=== PATIENT | female | born 1985 | race African-American/Black ===

== ENCOUNTER 2016-08-14 14:12 | Emergency (ER) | payer SELFPAY ==
[~2016-08-14] VITALS: Ht 160 cm; Wt 87.1 kg
[~2016-08-14 14:12] MED LIST: CYCL10TA2 PO; IBUP-1060 PO; PROM25TA10 PO
[2016-08-14 15:20] LABS: BILIRUBIN,URINE NEGATIVE (NEG); GLUCOSE,URINE NEGATIVE (NEG); NITRITE,URINE NEGATIVE (NEG); PH,URINE 5.5; PROTEIN,URINE NEGATIVE (NEG-TRACE); UROBILINOGEN,URINE 0.2 mg/dL (0.2 mg/dL)
[2016-08-14 15:29] VITALS: BP 116/78
[2016-08-14 15:31] LABS: BACTERIA,URINE 0 /HPF (0-FEW); RBC,URINE 0 /HPF (0-2); SQUAMOUS EPITHELIAL CELL,UR FEW /LPF
--- NOTE | 2016-08-14 15:31 | PHYS DOC ---
Past Medical History Past Medical History: No Pertinent History Past Surgical History: Other Additional Past Surgical Histo: D&C, R FALLOPIAN TUBE REMOVED Alcohol Use: Occasionally Drug Use: Marijuana Adult General Chief Complaint Chief Complaint: CONTISPATION HPI HPI Patient is a 31 year old female with a history of tubal 10 years ago who presents today with constipation in as well as low back pain in . Patient states she's not had a good bowel movement for the last 2 or 3 days due to the vitamins she is taking. Patient has not tried anything [id number] for this constipation. She is a 2 para 0. Her last was the tubal . She is also complaining of low back pain for a couple weeks. Patient denies any trauma. Denies any pain radiating to bilateral lower extremities. Denies any urgency frequency or dysuria. She states she has not seen her OBGYN yet because she is waiting for a medical card. Patient denies any vaginal discharge or abd pain. Last menstrual cycle was June 02, 2016 Review of Systems Review of Systems Constitutional: Denies fever or chills [] Eyes: Denies change in visual acuity, redness, or eye pain [] HENT: Denies nasal congestion or sore throat [] Respiratory: Denies cough or shortness of breath [] Cardiovascular: No additional information not addressed in HPI [] GI: Constipation : Denies dysuria or hematuria [] Musculoskeletal: Low back pain Integument: Denies rash or skin lesions [] Neurologic: Denies headache, focal weakness or sensory changes [] Endocrine: Denies polyuria or polydipsia [] Allergies Allergies Allergies Coded Allergies Type Severity Reaction Last Updated Verified No Known Drug Allergies 07/19/13 No Physical Exam Physical Exam Constitutional: Well developed, well nourished, no acute distress, non-toxic appearance. [] HENT: Normocephalic, atraumatic, bilateral external ears normal, oropharynx moist, no oral exudates, nose normal. [] Eyes: PERRLA, EOMI, conjunctiva normal, no discharge. [] Neck: Normal range of motion, no tenderness, supple, no stridor. [] Cardiovascular:Heart rate regular rhythm, no murmur [] Lungs & Thorax: Bilateral breath sounds clear to auscultation [] Abdomen: Rounded abdomen. Bowel sounds normal, soft, no tenderness, no masses, no pulsatile masses. [] Skin: Warm, dry, no erythema, no rash. [] Back: Diffuse paraspinal muscle tenderness to the lower lumbar region, no midline tenderness, no CVA tenderness. [] Extremities: No tenderness, no cyanosis, no clubbing, ROM intact, no edema. [] Neurologic: Alert and oriented X 3, normal motor function, normal sensory function, no focal deficits noted. [] Psychologic: Affect normal, judgement normal, mood normal. [] Current Patient Data Vital Signs Vital Signs Date Time Temp Pulse Resp B/P (MAP) Pulse Ox O2 Delivery O2 Flow Rate FiO2 08/14/16 14:25 98.2 98 18 98 Room Air 98.2 Lab Values Laboratory Tests Test 08/14/16 13:38 08/14/16 14:20 POC Urine HCG, Qualitative Hcg positive (Negative) Urine Collection Type Unknown Urine Color Yellow Urine Clarity Clear Urine pH 5.5 Urine Specific [place] 1.020 Urine Protein Negative mg/dL (NEG-TRACE) Urine Glucose (UA) Negative mg/dL (NEG) Urine Ketones (Stick) Negative mg/dL (NEG) Urine Blood Negative (NEG) Urine Nitrite Negative (NEG) Urine Bilirubin Negative (NEG) Urine Urobilinogen Dipstick 0.2 mg/dL (0.2 mg/dL) Urine Leukocyte Esterase Negative (NEG) Urine RBC 0 /HPF (0-2) Urine WBC 1-4 /HPF (0-4) Urine Squamous Epithelial Cells Few /LPF Urine Bacteria 0 /HPF (0-FEW) Urine Mucus Mod /LPF EKG EKG [] Radiology/Procedures Radiology/Procedures [] Course & Med Decision Making Course & Med Decision Making Pertinent Labs and Imaging studies reviewed. (See chart for details) This is a 31-year-old female patient who presents today for constipation as well as low back pain in . She is 8 weeks . She states her constipation is from vitamins. I talked to patient and encouraged her to look for vitamins that do not cause constipation especially from the health food stools. We talked about increasing water as well as dietary fiber intake. I recommended MiraLAX on daily basis. I recommended she follows up with the [facility] as soon as she can. Her urine analysis is no infection. She was provided return precautions and discharged in stable condition. Dragon Disclaimer Dragon Disclaimer This electronic medical record was generated, in whole or in part, using a voice recognition dictation system. Departure Departure Impression: Primary Impression: Constipation Additional Impressions: Low back pain Disposition: 01 HOME, SELF-CARE Condition: STABLE Referrals: NO PCP (PCP) CHARITY BUNN MD Follow-up with the provided [facility] in one week Patient Instructions: ABCs of , Back Pain, Adult, Constipation, Adult Additional Instructions: You were seen for constipation in as well as back pain. Take over-the- counter MiraLAX every day for constipation. Take Tylenol as needed for back pain. You can go to health food stores and look for vitamins that do not cause constipation. Follow-up with the provided [facility] in the next 7 days. Come back to the ED if symptoms worsen. Scripts Polyethylene Glycol 3350 (MIRALAX) 17 Gm Powd.pack 1 PACKET PO DAILY, #30 PACKET 3 Refills Prov: GABI GRISSOM APRN 08/14/16 Problem Qualifiers Primary Impression: Constipation Constipation type: unspecified constipation type Qualified Codes: K59.00 - Constipation, unspecified Additional Impressions: Low back pain Chronicity: acute Back pain laterality: bilateral Sciatica presence: without sciatica Qualified Codes: M54.5 - Low back pain Weeks of gestation: 8 weeks Qualified Codes: Z3A.08 - 8 weeks gestation of GABI GRISSOM APRN Aug 14, 2016 15:31
[2016-08-14] MEDS ORDERED: POLY17PO29 PO (15:45)
== END 2016-08-14 15:48 | disposition home or self-care (01) ==
LOC: ER 14:12
DX: O26.891 Other specified pregnancy related conditions, first trimester (principal); M54.5 Low back pain; K59.00 Constipation, unspecified; Z3A.08 8 weeks gestation of pregnancy; F12.10 Cannabis abuse, uncomplicated
CPT/HCPCS: 81001; 81025; 99283

== ENCOUNTER 2017-01-07 16:33 | Emergency (ER) | payer OTHER ==
[~2017-01-07] VITALS: Ht 160 cm; Wt 100.7 kg
[~2017-01-07 16:33] MED LIST changes: +POLY17PO29 PO
[2017-01-07 16:38] VITALS: BP 136/89
--- NOTE | 2017-01-07 16:55 | PHYS DOC ---
Past Medical History Past Medical History: No Pertinent History Past Surgical History: Other Additional Past Surgical Histo: D&C, R FALLOPIAN TUBE REMOVED Alcohol Use: Occasionally Additional Information: denies 01/07/17 Drug Use: Marijuana Social History Narrative: denies 01/07/17 Adult General Chief Complaint Chief Complaint: ABSCESS HPI HPI Patient is a 32 year old E male presents to the emergency department with complaints of a draining bump underneath her right axillary area. Patient states the bump his been present for "some years". She denies pain, fever, redness to the affected area. Review of Systems Review of Systems Constitutional: Denies fever or chills [] Eyes: Denies change in visual acuity, redness, or eye pain [] HENT: Denies nasal congestion or sore throat [] Respiratory: Denies cough or shortness of breath [] Cardiovascular: No additional information not addressed in HPI [] GI: Denies abdominal pain, nausea, vomiting, bloody stools or diarrhea [] : Denies dysuria or hematuria [] Musculoskeletal: Denies back pain or joint pain [] Integument: Abscess Neurologic: Denies headache, focal weakness or sensory changes [] Endocrine: Denies polyuria or polydipsia [] Allergies Allergies Allergies Coded Allergies Type Severity Reaction Last Updated Verified No Known Drug Allergies 07/19/13 No Physical Exam Physical Exam Constitutional: Well developed, well nourished, no acute distress, non-toxic appearance. [] Neck: Normal range of motion, no tenderness, supple without lymphadenopathy, no stridor. [] Cardiovascular:Heart rate regular rhythm, no murmur [] Lungs & Thorax: Bilateral breath sounds clear to auscultation []. [] Skin: Warm, dry, no erythema, no rash. Right axillary region with a 2 cm fluctuant area, skin colored, nontender. With pressure there is a small amount of thick white foul-smelling discharge. [] Neurologic: Alert and oriented X 3, normal motor function, normal sensory function, no focal deficits noted. [] Psychologic: Affect normal, judgement normal, mood normal. [] Current Patient Data Vital Signs Vital Signs Date Time Temp Pulse Resp B/P (MAP) Pulse Ox O2 Delivery O2 Flow Rate FiO2 01/07/17 16:38 98.2 98 18 99 Room Air 98.2 EKG EKG [] Radiology/Procedures Radiology/Procedures Procedure note: Right axillary sebaceous cyst, ray cleansed with Betadine, anesthetized with 1% lidocaine, half a milliliter. #11 blade utilize to incise the sebaceous cyst. Moderate amount of thick white secretions. Wound dressed with Band-Aid. Patient tolerated procedure well.[] Course & Med Decision Making Course & Med Decision Making Pertinent Labs and Imaging studies reviewed. (See chart for details) [] Dragon Disclaimer Dragon Disclaimer This electronic medical record was generated, in whole or in part, using a voice recognition dictation system. Departure Departure Impression: Primary Impression: Sebaceous cyst of right axilla Disposition: HOME, SELF-CARE Condition: STABLE Referrals: NO PCP (PCP) [facility] Patient Instructions: Cyst Removal Additional Instructions: No deodorant for 10 days. Keep area clean and dry. Return to the emergency department his symptoms or concerns or worsening of current condition. FELIPE ALBERT EMERGENCY MANAGEMENT SPECIALIST Jan 07, 2017 16:55
== END 2017-01-07 17:00 | disposition home or self-care (01) ==
LOC: ER 16:33
DX: L02.411 Cutaneous abscess of right axilla (principal); F17.210 Nicotine dependence, cigarettes, uncomplicated
CPT/HCPCS: 10060; 99283-25

== ENCOUNTER 2017-01-10 17:23 | Emergency (ER) | payer OTHER ==
[~2017-01-10] VITALS: Ht 160 cm; Wt 100.7 kg
[2017-01-10 17:49] VITALS: BP 157/89
[2017-01-10] MEDS ORDERED: CEPH500T PO (17:58)
--- NOTE | 2017-01-10 17:58 | PHYS DOC ---
Past Medical History Past Medical History: No Pertinent History Past Surgical History: Other Additional Past Surgical Histo: D&C, R FALLOPIAN TUBE REMOVED Alcohol Use: Occasionally Drug Use: Marijuana Adult General Chief Complaint Chief Complaint: ABSCESS HPI HPI Patient is a 32 year old female presents to the emergency department with a history of boil that she noted just below the right labia. Patient states the area is tender, denies drainage or discharge from the site. She does state she is . She has not been taking Tylenol for pain. Review of Systems Review of Systems Constitutional: Denies fever or chills [] Eyes: Denies change in visual acuity, redness, or eye pain [] HENT: Denies nasal congestion or sore throat [] Respiratory: Denies cough or shortness of breath [] Cardiovascular: No additional information not addressed in HPI [] GI: Denies abdominal pain, nausea, vomiting, bloody stools or diarrhea [] : Denies dysuria or hematuria [] Musculoskeletal: Denies back pain or joint pain [] Integument: Denies rash or skin lesions complaining of boil near the labia, right side Neurologic: Denies headache, focal weakness or sensory changes [] Endocrine: Denies polyuria or polydipsia [] Allergies Allergies Allergies Coded Allergies Type Severity Reaction Last Updated Verified No Known Drug Allergies 07/19/13 No Physical Exam Physical Exam Constitutional: Well developed, well nourished, no acute distress, non-toxic appearance. [] HENT: Normocephalic, atraumatic, bilateral external ears normal, oropharynx moist, no oral exudates, nose normal. [] Eyes: PERRLA, EOMI, conjunctiva normal, no discharge. [] Neck: Normal range of motion, no tenderness, supple, no stridor. [] Cardiovascular: [place] warm and dry Lungs & Thorax: No respiratory distress Skin: Warm, dry, no erythema, no rash. Patient with a small tender area does not appear to be red no warmth or drainage from the site appears to be approximately 2 cm your hair follicle just below the right labia. Area appears to be very soft with no induration or fluctuant noted. Extremities: No tenderness, no cyanosis, no clubbing, ROM intact, no edema. [] Neurologic: Alert and oriented X 3, normal motor function, normal sensory function, no focal deficits noted. [] Psychologic: Affect normal, judgement normal, mood normal. [] Current Patient Data Vital Signs Vital Signs Date Time Temp Pulse Resp B/P (MAP) Pulse Ox O2 Delivery O2 Flow Rate FiO2 01/10/17 17:49 97.8 102 16 98 Room Air 97.8 EKG EKG [] Radiology/Procedures Radiology/Procedures [] Course & Med Decision Making Course & Med Decision Making Pertinent Labs and Imaging studies reviewed. (See chart for details) Patient was recommended to use warm sitz baths 4-5 times daily. She'll be provided with a prescription for Keflex. Recommended Tylenol for pain and discomfort. Patient will be discharged home in stable condition with recommendations to follow-up with her [facility]/primary care physician in the next 3-5 days. Signs and symptoms to return back to emergency department as been provided. Patient agrees with discharge instructions treatment regimens and follow-up recommendations. [] Dragon Disclaimer Dragon Disclaimer This electronic medical record was generated, in whole or in part, using a voice recognition dictation system. Departure Departure Impression: Primary Impression: Folliculitis Disposition: 01 HOME, SELF-CARE Condition: STABLE Referrals: NO PCP (PCP) Patient Instructions: Folliculitis Additional Instructions: Activity as tolerated. Medication as prescribed. Tylenol for pain and discomfort. Warm sitz baths 5 times a day. Follow-up primary care physician or [facility] in the next 3-5 days. Return back to emergency prior signs symptoms of become worse. Scripts Cephalexin (CEPHALEXIN) 500 Mg Tablet 1 TAB PO BID, #20 TAB Prov: GENEVIEVE DAVIES APRN 01/10/17 GENEVIEVE DAVIES APRN Jan 10, 2017 17:58
== END 2017-01-10 18:12 | disposition home or self-care (01) ==
LOC: ER 17:23
DX: L73.9 Follicular disorder, unspecified (principal)
CPT/HCPCS: 99283

== ENCOUNTER 2017-09-22 15:59 | Emergency (ER) | payer OTHER ==
[2017-09-22 17:56] LABS: URINE HCG POC HCG NEGATIVE (Negative)
[2017-09-22 17:57] LABS: BILIRUBIN,URINE NEGATIVE (NEG); CLARITY,URINE CLEAR; COLOR,URINE YELLOW; GLUCOSE,URINE NEGATIVE (NEG); NITRITE,URINE NEGATIVE (NEG); PH,URINE 5.5; PROTEIN,URINE NEGATIVE (NEG-TRACE)
[2017-09-22 18:08] LABS: BACTERIA,URINE MOD /HPF (0-FEW); RBC,URINE 0 /HPF (0-2); SQUAMOUS EPITHELIAL CELL,UR MOD /LPF; WBC,URINE >40 /HPF (0-4)
[2017-09-22 18:09] LABS: AMORPHOUS SEDIMENT,UR PRESENT /HPF
== END 2017-09-22 19:09 | disposition home or self-care (01) ==
LOC: ER 19:09
DX: R51 Headache (principal); N39.0 Urinary tract infection, site not specified
CPT/HCPCS: 70450; 72125; 81001; 81025; 99285-25

== ENCOUNTER 2017-09-24 17:58 | Emergency (ER) | payer OTHER ==
[2017-09-24] MEDS: IBUPROFEN 800 MG TABLET. PO (19:13)
== END 2017-09-24 19:16 | disposition home or self-care (01) ==
LOC: ER 17:58
DX: R51 Headache (principal); N39.0 Urinary tract infection, site not specified
CPT/HCPCS: 99283

== ENCOUNTER 2018-01-07 10:54 | Emergency (ER) | payer OTHER ==
[~2018-01-07] VITALS: Ht 160 cm; Wt 104.3 kg
[~2018-01-07 10:54] MED LIST changes: +CEPH500T PO; +HYDR-971 PO; +NAPR-514 PO; +NITR100C62 PO
--- NOTE | 2018-01-07 11:22 | PHYS DOC ---
Past Medical History Past Medical History: No Pertinent History Past Surgical History: Other Additional Past Surgical Histo: D&C, R FALLOPIAN TUBE REMOVED Alcohol Use: Occasionally Drug Use: Marijuana Adult General Chief Complaint Chief Complaint: UPPER EXTREMITY INJURY HPI HPI Patient is a 33 year old female who presents today complaining of 7 out of 10 right hand pain that began this morning after she fell. 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 Patient denies any loss of consciousness. Review of Systems Review of Systems Constitutional: Denies fever or chills [] Musculoskeletal: Reports right hand pain Integument: Denies rash or skin lesions [] Neurologic: Denies headache, focal weakness or sensory changes [] All other systems were reviewed and found to be within normal limits, except as documented in this note. Allergies Allergies Allergies Coded Allergies Type Severity Reaction Last Updated Verified No Known Drug Allergies 07/19/13 No Physical Exam Physical Exam Constitutional: Well developed, well nourished, no acute distress, non-toxic appearance. [] Skin: Warm, dry, no erythema, no rash. [] Back: No tenderness, no CVA tenderness. [] Extremities: Right hand with no obvious deformity. Soft tissue swelling noted on the dorsal aspect of the hand. Diffuse tenderness on palpation of the dorsal aspect of the right hand. No scaphoid tenderness. Full range of motion to the right hand and fingers. +2 right radial pulse. Adequate radial, medial, ulnar sensation to the right hand. Cap refill less than 2 seconds the right fingers. Neurologic: Alert and oriented X 3, normal motor function, normal sensory function, no focal deficits noted. [] Psychologic: Affect normal, judgement normal, mood normal. [] Current Patient Data Vital Signs Vital Signs Date Time Temp Pulse Resp B/P (MAP) Pulse Ox O2 Delivery O2 Flow Rate FiO2 01/07/18 11:22 98.1 79 16 139/76 (97) 97 Room Air 98.1 EKG EKG [] Radiology/Procedures Radiology/Procedures []PROCEDURE: HAND RIGHT 3V History: Fell twice in the past 2 days. Pain in the posterior 1st and 2nd metacarpals. Comparison: None. Findings: PA, lateral, and oblique views of the right hand. Ulnar negative variance is seen. No acute fracture or dislocation is identified. Dorsal soft tissue swelling is seen. Impression: 1. No acute osseous traumatic injury identified. 2. Dorsal soft tissue swelling. Electronically signed by: Sharon Childs MD (01/07/2018 11:40 AM) [facility] DICTATED and SIGNED BY: SHARON CHILDS MD DATE: 01/07/18 1138 Course & Med Decision Making Course & Med Decision Making Pertinent Labs and Imaging studies reviewed. (See chart for details) This is a 33-year-old female patient presenting to the ED today with right hand pain status post falling today. Right hand x-rays interpreted by radiologist are negative for any acute findings. Velcro splint provided by the ED RN, neurovascular exam is intact, ice elevation encouraged. Discharged with diclofenac. Follow-up with orthopedic doctor in one week if pain continues. Dragon Disclaimer Dragon Disclaimer This electronic medical record was generated, in whole or in part, using a voice recognition dictation system. Departure Departure Impression: Primary Impression: Fall Additional Impression: Sprain of right hand Disposition: HOME, SELF-CARE Condition: STABLE Referrals: NO PCP (PCP) CAMILO LANGE MD follow up in one week if sypmptoms persist Patient Instructions: Fall Prevention and Home Safety, Joint Sprain Additional Instructions: You were seen for right hand sprain. Ice elevate the extremity. Wear the provided Velcro splint as needed and tolerated. Take the prescribed medicine as needed. Follow-up with the provided orthopedic doctor or your own doctor in 1-2 weeks as needed. Scripts Diclofenac Sodium (DICLOFENAC SODIUM) 50 Mg Tablet.dr 1 TAB PO BID, #30 TAB 0 Refills Prov: GABI GRISSOM APRN 01/07/18 Problem Qualifiers Primary Impression: Fall Encounter type: initial encounter Qualified Codes: W19.XXXA - Unspecified fall, initial encounter Additional Impression: Sprain of right hand Encounter type: initial encounter Qualified Codes: S63.91XA - Sprain of unspecified part of right wrist and hand, initial encounter GABI GRISSOM APRN Jan 07, 2018 11:22
--- NOTE | 2018-01-07 11:43 | RAD ---
History: Fell twice in the past 2 days. Pain in the posterior 1st and 2nd metacarpals. Comparison: None. Findings: PA, lateral, and oblique views of the right hand. Ulnar negative variance is seen. No acute fracture or dislocation is identified. Dorsal soft tissue swelling is seen. Impression: 1. No acute osseous traumatic injury identified. 2. Dorsal soft tissue swelling. Electronically signed by: Arnol Childs MD (01/07/2018 11:40 AM) [place] [id number]
[2018-01-07] MEDS ORDERED: DICL50TA4 PO (12:06)
[2018-01-07 12:12] VITALS: BP 129/81
== END 2018-01-07 12:12 | disposition home or self-care (01) ==
LOC: ER 10:54
DX: S63.91XA Sprain of unspecified part of right wrist and hand, initial encounter (principal); W18.39XA Other fall on same level, initial encounter; Y93.H3 Activity, building and construction; Y92.69 Other specified industrial and construction area as the place of occurrence of the external cause; Y99.0 Civilian activity done for income or pay
CPT/HCPCS: 29125; 73130; 99284-25

== ENCOUNTER 2018-03-06 23:50 | Emergency (ER) | payer OTHER ==
[~2018-03-06] VITALS: Ht 160 cm; Wt 106.6 kg
[~2018-03-06 23:50] MED LIST changes: +DICL50TA4 PO; +HYDR-3164 PO; -HYDR-971 PO
[2018-03-07 03:00] VITALS: BP 107/64
[2018-03-07] MEDS ORDERED: ACETAMINOPHEN 500 MG TABLET PO ONE (03:30)
--- NOTE | 2018-03-07 04:49 | PHYS DOC ---
Past Medical History Past Medical History: No Pertinent History Past Surgical History: No Surgical History Additional Past Surgical Histo: D&C, R FALLOPIAN TUBE REMOVED Alcohol Use: None Drug Use: None Adult General Chief Complaint Chief Complaint: ABDOMINAL PAIN IN HPI HPI Patient is a 33 year old approximately 10 week prenant female presents with left lateral pelvic pain when ambulating. Denies pelvic pain at rest, vaginal discharge, bleeding. No other acute symptoms or complaints.[] Review of Systems Review of Systems Constitutional: Denies fever or chills [] Eyes: Denies change in visual acuity, redness, or eye pain [] HENT: Denies nasal congestion or sore throat [] Respiratory: Denies cough or shortness of breath [] Cardiovascular: No additional information not addressed in HPI [] GI: Denies abdominal pain, nausea, vomiting, bloody stools or diarrhea [] : Denies dysuria or hematuria [] Musculoskeletal: Denies back pain or joint pain [] Integument: Denies rash or skin lesions [] Neurologic: Denies headache, focal weakness or sensory changes [] Endocrine: Denies polyuria or polydipsia [] All other systems were reviewed and found to be within normal limits, except as documented in this note. Current Medications Current Medications Current Medications Medications (Trade) Dose Ordered Sig/Akbar Start Time Stop Time Status Last Admin Dose Admin Acetaminophen (Tylenol) 1,000 mg 1X ONCE 03/07/18 03:30 03/07/18 03:31 DC 03/07/18 03:02 1,000 MG Allergies Allergies Allergies Coded Allergies Type Severity Reaction Last Updated Verified No Known Drug Allergies 07/19/13 No Physical Exam Physical Exam Constitutional: Well developed, well nourished, no acute distress, non-toxic appearance. [] HENT: Normocephalic, atraumatic, bilateral external ears normal, oropharynx moist, no oral exudates, nose normal. [] Eyes: PERRLA, EOMI, conjunctiva normal, no discharge. [] Neck: Normal range of motion, no tenderness, supple, no stridor. [] Cardiovascular:Heart rate regular rhythm, no murmur [] Lungs & Thorax: Bilateral breath sounds clear to auscultation [] Abdomen: Bowel sounds normal, soft, no tenderness. left lateral pelvic pain reproduces with leg movement. No lower abdominal or pelvic pain.[] Skin: Warm, dry, no erythema, no rash. [] Neurologic: Alert and oriented X 3, normal motor function, normal sensory function, no focal deficits noted. [] Psychologic: Affect normal, judgement normal, mood normal. [] Current Patient Data Vital Signs Vital Signs Date Time Temp Pulse Resp B/P (MAP) Pulse Ox O2 Delivery O2 Flow Rate FiO2 03/07/18 03:00 76 16 107/64 (78) 99 Room Air 03/07/18 00:43 97.5 97.5 Lab Values Laboratory Tests Test 03/07/18 02:29 POC Urine HCG, Qualitative Hcg positive (Negative) EKG EKG [] Radiology/Procedures Radiology/Procedures [] Course & Med Decision Making Course & Med Decision Making Pertinent Labs and Imaging studies reviewed. (See chart for details) [symptomsexam most consistent withligament pain. Recommend supportive care with [facility] follow-up. Return cautions reviewed.] Dragon Disclaimer Dragon Disclaimer This electronic medical record was generated, in whole or in part, using a voice recognition dictation system. Departure Departure Impression: Primary Impression: Round ligament pain Additional Impression: Pelvic pain Disposition: 01 HOME, SELF-CARE Condition: GOOD Patient Instructions: Round Ligament Pain Additional Instructions: Please take Tylenol as needed for pelvic pain and follow-up with your OB for further evaluation. Return to the ED if new or worsening symptoms. Problem Qualifiers VICKI HOFFMANN DO Mar 07, 2018 04:49
== END 2018-03-07 03:14 | disposition home or self-care (01) ==
LOC: ER 23:50
DX: O26.891 Other specified pregnancy related conditions, first trimester (principal); R10.2 Pelvic and perineal pain; Z3A.10 10 weeks gestation of pregnancy
CPT/HCPCS: 81025; 99283

== ENCOUNTER 2018-05-10 13:57 | Emergency (ER) | payer OTHER ==
[~2018-05-10] VITALS: Ht 160 cm; Wt 107.5 kg
[2018-05-10] MEDS ORDERED: IV NORMAL SALINE 1000ML BAG 1,000 ML IV ONE (16:30)
[2018-05-10 16:33] LABS: BILIRUBIN,URINE NEGATIVE (NEG); CLARITY,URINE CLEAR; COLOR,URINE YELLOW; NITRITE,URINE NEGATIVE (NEG); PROTEIN,URINE NEGATIVE (NEG-TRACE)
--- NOTE | 2018-05-10 16:33 | PHYS DOC ---
Past Medical History Past Medical History: No Pertinent History (GABI GRISSOM APRN) Past Surgical History: No Surgical History Additional Past Surgical Histo: D&C, R FALLOPIAN TUBE REMOVED (GABI GRISSOM APRN) Alcohol Use: None Drug Use: None (GABI GRISSOM APRN) Adult General Chief Complaint Chief Complaint: SYNCOPE HPI HPI Patient is a 33 year old female 2 para 1 currently 17 weeks presenting to the ED today to be evaluated for syncope episode. Patient states she's had dizziness intermittently for couple days. She states today she stood up from sitting position and was getting ready to go to work, patient states she passed out and fell, she states she does not know how long she was out. Patient is complaining of slight abdominal pain, right upper quadrant. She states she doesn't know if she hit something when she fell. She has bruising to the right forehead and right pelaez. Patient denies any vaginal bleeding. Denies any chest pain or shortness of breath. Denies any unilateral leg pain. Denies any personal family history of PEs. SPEECH CLINICIAN Dr. Dunn (GABI GRISSOM APRN) Review of Systems Review of Systems Constitutional: Denies fever or chills [] Eyes: Denies change in visual acuity, redness, or eye pain [] HENT: Denies nasal congestion or sore throat [] Respiratory: Denies cough or shortness of breath [] Cardiovascular: No additional information not addressed in HPI [] GI: Reports slight right upper quadrant abdominal pain, denies nausea, vomiting , bloody stools or diarrhea [] : Denies dysuria or hematuria [] Musculoskeletal: Denies back pain or joint pain [] Integument: Denies rash or skin lesions [] Neurologic: Reports syncope. Denies headache, focal weakness or sensory changes [] All other systems were reviewed and found to be within normal limits, except as documented in this note. (GABI GRISSOM APRN) Current Medications Current Medications Current Medications Medications (Trade) Dose Ordered Sig/Akbar Start Time Stop Time Status Last Admin Dose Admin Ceftriaxone Sodium (Rocephin) 1 gm 1X ONCE 05/10/18 17:15 05/10/18 17:16 DC 05/10/18 17:30 1 GM Sodium Chloride 1,000 ml @ 1,000 mls/hr 1X ONCE 05/10/18 16:30 05/10/18 17:29 DC 05/10/18 17:09 1,000 MLS/HR (DIXIE QUIROZ MD) Allergies Allergies Allergies Coded Allergies Type Severity Reaction Last Updated Verified No Known Drug Allergies 07/19/13 No (DIXIE QUIROZ MD) Physical Exam Physical Exam Constitutional: Well developed, well nourished, no acute distress, non-toxic appearance. [] HENT: Normocephalic, atraumatic, bilateral external ears normal, oropharynx moist, no oral exudates, nose normal. [] Eyes: PERRLA, EOMI, conjunctiva normal, no discharge. [] Neck: Normal range of motion, no tenderness, supple, no stridor. [] Cardiovascular:Heart rate regular rhythm, no murmur [] Lungs & Thorax: Bilateral breath sounds clear to auscultation [] Abdomen: Gravid abdomen, no tenderness on exam. Bowel sounds normal, soft, no masses, no pulsatile masses. [] Skin: Warm, dry, no erythema, no rash. Bruising noted on the right forehead as well as right chin. Back: No tenderness, no CVA tenderness. [] Extremities: No tenderness, no cyanosis, no clubbing, ROM intact, no edema. [] Negative bilateral Homans sign. Neurologic: Alert and oriented X 3, normal motor function, normal sensory function, no focal deficits noted. Psychologic: Affect normal, judgement normal, mood normal. [] (GABI GRISSOM APRN) Current Patient Data Vital Signs Vital Signs Date Time Temp Pulse Resp B/P (MAP) Pulse Ox O2 Delivery O2 Flow Rate FiO2 05/10/18 18:30 80 20 112/60 (77) 99 Room Air 05/10/18 16:15 98.1 98.1 (DIXIE QUIROZ MD) Lab Values Laboratory Tests Test 05/10/18 16:20 05/10/18 16:50 Urine Collection Type Unknown Urine Color Yellow Urine Clarity Clear Urine pH 7.0 Urine Specific [place] 1.020 Urine Protein Negative mg/dL (NEG-TRACE) Urine Glucose (UA) Negative mg/dL (NEG) Urine Ketones (Stick) Negative mg/dL (NEG) Urine Blood Negative (NEG) Urine Nitrite Negative (NEG) Urine Bilirubin Negative (NEG) Urine Urobilinogen Dipstick 1.0 mg/dL (0.2 mg/dL) Urine Leukocyte Esterase Moderate (NEG) Urine RBC 0 /HPF (0-2) Urine WBC 5-10 /HPF (0-4) Urine Squamous Epithelial Cells Many /LPF Urine Bacteria Many /HPF (0-FEW) Urine Opiates Screen Neg (NEG) Urine Methadone Screen Neg (NEG) Urine Barbiturates Neg (NEG) Urine Phencyclidine Screen Neg (NEG) Urine Amphetamine/Methamphetamine Neg (NEG) Urine Benzodiazepines Screen Neg (NEG) Urine Cocaine Screen Neg (NEG) Urine Cannabinoids Screen Neg (NEG) Urine Ethyl Alcohol Neg (NEG) White Blood Count 9.9 x10^3/uL (4.0-11.0) Red Blood Count 3.44 x10^6/uL (3.50-5.40) L Hemoglobin 10.5 g/dL (12.0-15.5) L Hematocrit 31.0 % (36.0-47.0) L Mean Corpuscular Volume 90 fL (79-100) Mean Corpuscular Hemoglobin 31 pg (25-35) Mean Corpuscular Hemoglobin Concent 34 g/dL (31-37) Red Cell Distribution Width 13.2 % (11.5-14.5) Platelet Count 326 x10^3/uL (140-400) Neutrophils (%) (Auto) 62 % (31-73) Lymphocytes (%) (Auto) 27 % (24-48) Monocytes (%) (Auto) 8 % (0-9) Eosinophils (%) (Auto) 3 % (0-3) Basophils (%) (Auto) 1 % (0-3) Neutrophils # (Auto) 6.1 x10^3uL (1.8-7.7) Lymphocytes # (Auto) 2.6 x10^3/uL (1.0-4.8) Monocytes # (Auto) 0.8 x10^3/uL (0.0-1.1) Eosinophils # (Auto) 0.3 x10^3/uL (0.0-0.7) Basophils # (Auto) 0.1 x10^3/uL (0.0-0.2) Maternal Serum HCG Beta Subunit 99192 mIU/mL (0-5) H Sodium Level 139 mmol/L (136-145) Potassium Level 3.6 mmol/L (3.5-5.1) Chloride Level 104 mmol/L (98-107) Carbon Dioxide Level 26 mmol/L (21-32) Anion Gap 9 (6-14) Blood Urea Nitrogen 11 mg/dL (7-20) Creatinine 0.5 mg/dL (0.6-1.0) L Estimated GFR (Cockcroft-Gault) 169.9 BUN/Creatinine Ratio 22 (6-20) H Glucose Level 95 mg/dL (70-99) Calcium Level 9.2 mg/dL (8.5-10.1) Magnesium Level 1.6 mg/dL (1.8-2.4) L Total Bilirubin 0.2 mg/dL (0.2-1.0) Aspartate Amino Transferase (AST) 20 U/L (15-37) Alanine Aminotransferase (ALT) 21 U/L (14-59) Alkaline Phosphatase 74 U/L (46-116) Creatine Kinase 337 U/L (26-192) H Creatine Kinase MB (Mass) 2.1 ng/mL (0.0-3.6) Creatine Kinase MB Relative Index 0.6 % (0-4) Troponin I Quantitative < 0.017 ng/mL (0.000-0.055) GB-Hox-Z-Type Natriuretic Peptide 148 pg/mL (0-124) H Total Protein 6.3 g/dL (6.4-8.2) L Albumin 2.7 g/dL (3.4-5.0) L Albumin/Globulin Ratio 0.8 (1.0-1.7) L Lipase 70 U/L (73-393) L Thyroid Stimulating Hormone (TSH) 1.187 uIU/mL (0.358-3.74) Laboratory Tests 05/10/18 16:50 Laboratory Tests 05/10/18 16:50 (DIXIE QUIROZ MD) Lab Values Laboratory Tests Test 05/10/18 16:20 05/10/18 16:50 Urine Collection Type Unknown Urine Color Yellow Urine Clarity Clear Urine pH 7.0 Urine Specific [place] 1.020 Urine Protein Negative mg/dL (NEG-TRACE) Urine Glucose (UA) Negative mg/dL (NEG) Urine Ketones (Stick) Negative mg/dL (NEG) Urine Blood Negative (NEG) Urine Nitrite Negative (NEG) Urine Bilirubin Negative (NEG) Urine Urobilinogen Dipstick 1.0 mg/dL (0.2 mg/dL) Urine Leukocyte Esterase Moderate (NEG) Urine RBC 0 /HPF (0-2) Urine WBC 5-10 /HPF (0-4) Urine Squamous Epithelial Cells Many /LPF Urine Bacteria Many /HPF (0-FEW) White Blood Count 9.9 x10^3/uL (4.0-11.0) Red Blood Count 3.44 x10^6/uL (3.50-5.40) L Hemoglobin 10.5 g/dL (12.0-15.5) L Hematocrit 31.0 % (36.0-47.0) L Mean Corpuscular Volume 90 fL (79-100) Mean Corpuscular Hemoglobin 31 pg (25-35) Mean Corpuscular Hemoglobin Concent 34 g/dL (31-37) Red Cell Distribution Width 13.2 % (11.5-14.5) Platelet Count 326 x10^3/uL (140-400) Neutrophils (%) (Auto) 62 % (31-73) Lymphocytes (%) (Auto) 27 % (24-48) Monocytes (%) (Auto) 8 % (0-9) Eosinophils (%) (Auto) 3 % (0-3) Basophils (%) (Auto) 1 % (0-3) Neutrophils # (Auto) 6.1 x10^3uL (1.8-7.7) Lymphocytes # (Auto) 2.6 x10^3/uL (1.0-4.8) Monocytes # (Auto) 0.8 x10^3/uL (0.0-1.1) Eosinophils # (Auto) 0.3 x10^3/uL (0.0-0.7) Basophils # (Auto) 0.1 x10^3/uL (0.0-0.2) Maternal Serum HCG Beta Subunit 73966 mIU/mL (0-5) H Sodium Level 139 mmol/L (136-145) Potassium Level 3.6 mmol/L (3.5-5.1) Chloride Level 104 mmol/L (98-107) Carbon Dioxide Level 26 mmol/L (21-32) Anion Gap 9 (6-14) Blood Urea Nitrogen 11 mg/dL (7-20) Creatinine 0.5 mg/dL (0.6-1.0) L Estimated GFR (Cockcroft-Gault) 169.9 BUN/Creatinine Ratio 22 (6-20) H Glucose Level 95 mg/dL (70-99) Calcium Level 9.2 mg/dL (8.5-10.1) Magnesium Level 1.6 mg/dL (1.8-2.4) L Total Bilirubin 0.2 mg/dL (0.2-1.0) Aspartate Amino Transferase (AST) 20 U/L (15-37) Alanine Aminotransferase (ALT) 21 U/L (14-59) Alkaline Phosphatase 74 U/L (46-116) Creatine Kinase 337 U/L (26-192) H Creatine Kinase MB (Mass) 2.1 ng/mL (0.0-3.6) Creatine Kinase MB Relative Index 0.6 % (0-4) Troponin I Quantitative < 0.017 ng/mL (0.000-0.055) EX-Lsj-L-Type Natriuretic Peptide 148 pg/mL (0-124) H Total Protein 6.3 g/dL (6.4-8.2) L Albumin 2.7 g/dL (3.4-5.0) L Albumin/Globulin Ratio 0.8 (1.0-1.7) L Lipase 70 U/L (73-393) L Thyroid Stimulating Hormone (TSH) 1.187 uIU/mL (0.358-3.74) Laboratory Tests 05/10/18 16:50 Laboratory Tests 05/10/18 16:50 (GABI GRISSOM APRN) EKG EKG [] (GABI GRISSOM APRN) Radiology/Procedures Radiology/Procedures []PROCEDURE: PREG MORE THAN OR EQ TO 14 WKS EXAM: Obstetrics sonogram. HISTORY: Syncope. TECHNIQUE: Sonographic imaging of a gravid uterus was performed. COMPARISON: None. FINDINGS: There is a single intrauterine fetus in breech presentation with a heart rate of 144 bpm. There is body motion. The cervix is closed and measures 3.6 cm in length. There is a grade 1 anterior placenta without evidence of placenta previa. The biparietal diameter is 4.15 cm, corresponding with 18 weeks and 4 days. The head circumference is 15.0 cm, corresponding with 18 weeks and 1 day. The abdominal circumference is 12.41 cm, corresponding with 18 weeks and 0 days. The femoral length is 2.81 cm, corresponding with 18 weeks and 4 days. The estimated gestational age patient combined ultrasound measurements is 18 weeks and 2 days and the estimated due date is 10/09/2018. The maternal adnexal regions are not formally assessed. IMPRESSION: 1. Single intrauterine fetus with an estimated gestational age based on ultrasound measurements of 18 weeks and 2 days and heart rate of 144 bpm. 2. Note is made that the anatomy is not formally assessed on this exam. A formal anatomy survey can be performed at approximately 20 weeks gestation. Electronically signed by: Karla Cueto MD (05/10/2018 4:56 PM) [place] [id number] DICTATED and SIGNED BY: KARLA CUETO MD DATE: 05/10/18 [id number] (GABI GRISSOM APRN) Course & Med Decision Making Course & Med Decision Making Pertinent Labs and Imaging studies reviewed. (See chart for details) This is a 33-year-old female patient 2 para 1 currently 17 weeks presenting to the ED today with a syncope episode. CBC with a normal WBC, hemoglobin 10.5, hematocrit 31.0, beta hCG 21,189, CMP with no acute findings. Urine analysis is noted for UTI, patient was started on cephalexin. OB ultrasound was noted for an IUP 18 weeks 4 days heart rate 144. Blood pressure on arrival to the ED 114/69 heart rate 94 temperature 98.1 O2 sats 98% on room air, respiration 18. Patient was given IV fluids. Currently feeling better. Sitting up in no distress. She has good follow-up with her SPEECH CLINICIAN. Consulted with Dr. Dasilva who stated patient can be discharged and instructed to push fluids, change positions slowly and follow up with the SPEECH CLINICIAN in the course of this week. Patient states she has an appointment on . (GABI GRISSOM APRN) Course & Med Decision Making Staff Physician Addendum: I was working in the ER during the course of this patient's visit. I was available for consultation as needed, but I was not directly involved in the care of this patient. (DIXIE QUIROZ MD) Dragon Disclaimer Dragon Disclaimer This electronic medical record was generated, in whole or in part, using a voice recognition dictation system. (GABI GRISSOM APRN) Departure Departure Impression: Primary Impression: Urinary tract infection Additional Impressions: Syncope Disposition: HOME, SELF-CARE Condition: STABLE Referrals: NO PCP (PCP) ROCAEL DUNN MD Follow-up in the course of this week Patient Instructions: Syncope, Urinary Tract Infection Additional Instructions: You were evaluated in the emergency room for a syncope episode.You also have urinary tract infection, complete your antibiotics, push fluids. Change positions slowly as we discussed. Contact your SPEECH CLINICIAN and follow-up in the course of this week. Scripts Cephalexin (CEPHALEXIN) 500 Mg Tablet 1 TAB PO BID, #14 TAB Prov: GABI GRISSOM APRN 05/10/18 Problem Qualifiers Primary Impression: Urinary tract infection Urinary tract infection type: site unspecified Hematuria presence: without hematuria Qualified Codes: N39.0 - Urinary tract infection, site not specified Additional Impressions: Syncope Syncope type: unspecified Qualified Codes: R55 - Syncope and collapse Weeks of gestation: 18 weeks Qualified Codes: Z3A.18 - 18 weeks gestation of GABI GRISSOM APRN May 10, 2018 16:33 DIXIE QUIROZ MD May 10, 2018 21:46
[2018-05-10 16:38] LABS: BACTERIA,URINE MANY /HPF (0-FEW); SQUAMOUS EPITHELIAL CELL,UR MANY /LPF
[2018-05-10 16:39] LABS: RBC,URINE 0 /HPF (0-2)
--- NOTE | 2018-05-10 16:59 | RAD ---
EXAM: Obstetrics sonogram. HISTORY: Syncope. TECHNIQUE: Sonographic imaging of a gravid uterus was performed. COMPARISON: None. FINDINGS: There is a single intrauterine fetus in breech presentation with a heart rate of 144 bpm. There is body motion. The cervix is closed and measures 3.6 cm in length. There is a grade 1 anterior placenta without evidence of placenta previa. The biparietal diameter is 4.15 cm, corresponding with 18 weeks and 4 days. The head circumference is 15.0 cm, corresponding with 18 weeks and 1 day. The abdominal circumference is 12.41 cm, corresponding with 18 weeks and 0 days. The femoral length is 2.81 cm, corresponding with 18 weeks and 4 days. The estimated gestational age patient combined ultrasound measurements is 18 weeks and 2 days and the estimated due date is 10/09/2018. The maternal adnexal regions are not formally assessed. IMPRESSION: 1. Single intrauterine fetus with an estimated gestational age based on ultrasound measurements of 18 weeks and 2 days and heart rate of 144 bpm. 2. Note is made that the anatomy is not formally assessed on this exam. A formal anatomy survey can be performed at approximately 20 weeks gestation. Electronically signed by: Karla Fitzpatrick MD (05/10/2018 4:56 PM) [place] [id number]
[2018-05-10 17:05] LABS: BASO # 0.1 x10^3/uL (0.0-0.2); BASO % 1 % (0-3); EOS # 0.3 x10^3/uL (0.0-0.7); EOS % 3 % (0-3); HEMOGLOBIN 10.5 g/dL (12.0-15.5); LYMPH # 2.6 x10^3/uL (1.0-4.8); LYMPH % 27 % (24-48); MEAN CORPUSCULAR HEMOGLOBIN 31 pg (25-35); MEAN CORPUSCULAR HGB CONC 34 g/dL (31-37); MEAN CORPUSCULAR VOLUME 90 fL (79-100); MONO # 0.8 x10^3/uL (0.0-1.1); MONO % 8 % (0-9); NEUT # 6.1 x10^3uL (1.8-7.7); NEUT % 62 % (31-73); PLATELET COUNT 326 x10^3/uL (140-400); RED BLOOD COUNT 3.44 x10^6/uL (3.50-5.40); RED CELL DISTRIBUTION WIDTH 13.2 % (11.5-14.5); WHITE BLOOD COUNT 9.9 x10^3/uL (4.0-11.0)
[2018-05-10] MEDS ORDERED: cefTRIAXone IV Push 1 GM VIAL. IVP ONE (17:15)
[2018-05-10 17:24] LABS: CALCIUM 9.2 mg/dL (8.5-10.1); CREATININE 0.5 mg/dL (0.6-1.0); GFR 169.9; POTASSIUM 3.6 mmol/L (3.5-5.1)
[2018-05-10 17:30] LABS: ALBUMIN 2.7 g/dL (3.4-5.0); ALBUMIN/GLOBULIN RATIO 0.8 (1.0-1.7); MAGNESIUM 1.6 mg/dL (1.8-2.4); TOTAL BILIRUBIN 0.2 mg/dL (0.2-1.0); TOTAL PROTEIN 6.3 g/dL (6.4-8.2)
[2018-05-10 18:30] VITALS: BP 112/60
[2018-05-10] MEDS ORDERED: CEPH500T PO (19:07)
[2018-05-10 19:21] LABS: BARBITURATES NEG (NEG); BENZODIAZEPINES NEG (NEG); CANNABINOIDS NEG (NEG); COCAINE NEG (NEG); METHADONE NEG (NEG); OPIATES NEG (NEG); PHENCYCLIDINE NEG (NEG)
[2018-05-10 19:24] LABS: AMPHETAMINE/METHAMPHETAMINE NEG (NEG)
--- NOTE | 2018-05-11 04:55 | EKG ---
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
== END 2018-05-10 19:28 | disposition home or self-care (01) ==
LOC: ER 13:57
DX: O9A.212 Injury, poisoning and certain other consequences of external causes complicating pregnancy, second trimester (principal); S00.83XA Contusion of other part of head, initial encounter; S80.11XA Contusion of right lower leg, initial encounter; R55 Syncope and collapse; N39.0 Urinary tract infection, site not specified; Z3A.18 18 weeks gestation of pregnancy; W18.39XA Other fall on same level, initial encounter; Y93.89 Activity, other specified; Y92.89 Other specified places as the place of occurrence of the external cause; Y99.8 Other external cause status
CPT/HCPCS: 36415; 76805; 80053; 80307; 81001; 82553; 83690; 83735; 83880; 84443; 84484; 84702; 85025; 87086; 93005; 96361; 96374; 99284; J0696; J7030

== ENCOUNTER 2018-08-26 11:45 | Emergency (ER) | payer OTHER ==
[~2018-08-26] VITALS: Ht 160 cm; Wt 112.0 kg
[2018-08-26 11:58] VITALS: BP 155/83
[2018-08-26] MEDS ORDERED: CYCL10TA2 PO (12:05)
[2018-08-26] MEDS ORDERED: ACET-704 PO (12:05)
--- NOTE | 2018-08-26 12:06 | PHYS DOC ---
Past Medical History Past Medical History: No Pertinent History Past Surgical History: Other Additional Past Surgical Histo: D&C, R FALLOPIAN TUBE REMOVED Alcohol Use: None Drug Use: None Adult General Chief Complaint Chief Complaint: LOWER EXT PAIN HPI HPI Patient is a 33-year-old female, who is about 33 weeks who presents to the emergency department for sciatica-type symptoms, with pain radiating from her right buttock area down her right leg. She states her right leg will intermittently give out on her due to the pain. She has not had any incontinen ce, other than minor leakage related to her , or any other numbness or weakness. She is able to ambulate but states that ambulation seems to worsen the patient's pain, as well as certain positions. She saw her DISPLAY DEPARTMENT MANAGER, and states that she was told that the pain is due to the baby sitting on a nerve. She was not given any other instructions per the patient. She states the pain has been going on for at least a month. There are no alleviating or exacerbating factors to her symptoms. Patient has tried Tylenol without improvement in her symptoms. Review of Systems Review of Systems Constitutional: Denies fever or chills [] Eyes: Denies change in visual acuity, redness, or eye pain [] HENT: Denies nasal congestion or sore throat [] Respiratory: Denies cough or shortness of breath [] Cardiovascular: The patient denies any shortness of breath, chest pain, palpitations, or orthopnea [] GI: Denies abdominal pain, nausea, vomiting, bloody stools or diarrhea [] : Denies dysuria or hematuria, denies vaginal bleeding or discharge, reports positive movement. [] Musculoskeletal: Denies back pain or joint pain, except as noted in the history of present illness [] Integument: Denies rash or skin lesions [] Neurologic: Denies headache, focal weakness or sensory changes [] Endocrine: Denies polyuria or polydipsia [] All other systems were reviewed and found to be within normal limits, except as documented in this note. Allergies Allergies Allergies Coded Allergies Type Severity Reaction Last Updated Verified No Known Drug Allergies 07/19/13 No Physical Exam Physical Exam PHYSICAL EXAM: CONSTITUTIONAL: Well developed, well nourished HEAD: normocephalic, atraumatic EENT: PERRL, EOMI. Conjunctivae normal color, sclerae non-icteric; moist mucous membranes. NECK: Supple, non-tender; no meningismus. LUNGS: Lungs CTA, breathing even and unlabored. Normal air movement. HEART: Regular rate and rhythm, no murmur CHEST: No deformity; non-tender ABDOMEN: The abdomen is soft, and non-tender, no masses or bruits. The gravid uterus is nontender in the abdomen. EXTREM: Normal ROM; no deformity, no calf tenderness. Normal pulses palpable in all extremities. There is no pedal edema. SKIN: No rash; no diaphoresis NEURO: Alert; normal speech and cognition; CN's grossly intact; strength grossly intact without focal deficit. There is no foot drop. There is no perineal anesthesia. Patellar reflexes are 2+ bilaterally. Straight leg raise is mildly discomfort on the right relative to the left. BACK: No CVA TTP. EKG EKG [] Radiology/Procedures Radiology/Procedures [] Course & Med Decision Making Course & Med Decision Making Patient remains stable. I discussed test results, the need for close follow-up, and return precautions. I discussed laying in the left lateral decubitus position to alleviate symptoms on the right due to the uterus, and the importance for DISPLAY DEPARTMENT MANAGER follow-up. Dragon Disclaimer Dragon Disclaimer This electronic medical record was generated, in whole or in part, using a voice recognition dictation system. Departure Departure Impression: Primary Impression: Sciatica Disposition: 01 HOME, SELF-CARE Condition: STABLE Referrals: ROCAEL MENJIVAR MD Patient Instructions: Sciatica Additional Instructions: On the left side to alleviate pressure on the right back area will help improve your symptoms. Applying a heating pad to the affected area may help improve your symptoms. The prescribed medications may cause drowsiness-use caution while taking. Scripts Acetaminophen With Codeine (TYLENOL WITH CODEINE #3 TABLET) 1 Each Tablet 1 TAB PO PRN Q6HRS PRN for PAIN, #15 TAB Prov: RIVERA PAGAN MD 08/26/18 Cyclobenzaprine Hcl (CYCLOBENZAPRINE HCL) 10 Mg Tablet 1 TAB PO TID PRN for PAIN, #30 TAB Prov: RIVERA PAGAN MD 08/26/18 RIVERA PAGAN MD Aug 26, 2018 12:06
== END 2018-08-26 12:16 | disposition home or self-care (01) ==
LOC: ER 11:45
DX: O99.89 Other specified diseases and conditions complicating pregnancy, childbirth and the puerperium (principal); M54.41 Lumbago with sciatica, right side; Z3A.33 33 weeks gestation of pregnancy
CPT/HCPCS: 99283

== ENCOUNTER 2018-09-19 20:46 | Observation (INO) | payer OTHER ==
[~2018-09-19 20:46] MED LIST changes: +ACET-704 PO
[2018-09-19] MEDS ORDERED: IV RINGERS,LACTATED 1000ML 1,000 ML IV SCH (20:52)
[2018-09-19 21:19] LABS: BILIRUBIN,URINE NEGATIVE (NEG); CLARITY,URINE CLOUDY; COLOR,URINE YELLOW; NITRITE,URINE NEGATIVE (NEG); PROTEIN,URINE NEGATIVE (NEG-TRACE)
[2018-09-19 21:26] LABS: AMPHETAMINE/METHAMPHETAMINE NEG (NEG); BACTERIA,URINE MODERATE /HPF (0-FEW); BARBITURATES NEG (NEG); BENZODIAZEPINES NEG (NEG); CANNABINOIDS NEG (NEG); COCAINE NEG (NEG); METHADONE NEG (NEG); OPIATES NEG (NEG); PHENCYCLIDINE NEG (NEG); RBC,URINE 0 /HPF (0-2); SQUAMOUS EPITHELIAL CELL,UR MANY /LPF
== END 2018-09-19 21:55 | disposition home or self-care (01) ==
LOC: 3 SO LND 20:46
PROVIDERS: ADMIT Specialist; ATTEND Specialist
DX: O26.893 Other specified pregnancy related conditions, third trimester (principal); N89.8 Other specified noninflammatory disorders of vagina; Z3A.36 36 weeks gestation of pregnancy
CPT/HCPCS: 80307; 81001; 87086; G0378; G0379

== ENCOUNTER 2018-10-04 06:43 | Inpatient (IN) | payer OTHER ==
[~2018-10-04] VITALS: Ht 160 cm; Wt 113.4 kg
[2018-10-04] MEDS ORDERED: ONDANSETRON PF 4 MG/2 ML VIAL. IV PRN ×2 (07:00→13:30)
[2018-10-04] MEDS ORDERED: TERBUTALINE 1 MG/ML VIAL. SQ PRN (07:00)
[2018-10-04] MEDS ORDERED: OXYTOCIN 30 UNIT/500 ML PREMIX 500 ML IV PRN ×3 (07:00→17:45)
[2018-10-04] MEDS ORDERED: LIDOCAINE 1% PF 30 ML VIAL. INJ PRN (07:00)
[2018-10-04] MEDS ORDERED: fentaNYL PF VIAL 100 MCG/2 ML VIAL IV PRN (07:00)
[2018-10-04] MEDS ORDERED: 0.9 % SODIUM CHLORIDE 10 ML DISP.SYRIN. IV PRN ×2 (07:00→17:45)
[2018-10-04] MEDS ORDERED: CITRIC ACID/SODIUM CITRATE 30 ML SOLUTION. PO PRN (07:00)
[2018-10-04 07:20] LABS: BILIRUBIN,URINE NEGATIVE (NEG); CLARITY,URINE CLEAR; COLOR,URINE YELLOW; PH,URINE 5.5; PROTEIN,URINE NEGATIVE (NEG-TRACE)
[2018-10-04 07:21] LABS: NITRITE,URINE NEGATIVE (NEG); UROBILINOGEN,URINE 0.2 mg/dL (0.2 mg/dL)
[2018-10-04 07:31] LABS: BACTERIA,URINE FEW /HPF (0-FEW); RBC,URINE 0 /HPF (0-2); SQUAMOUS EPITHELIAL CELL,UR MANY /LPF
[2018-10-04 07:40] VITALS: BP 123/79
[2018-10-04] MEDS: IV RINGERS,LACTATED 1000ML 1,000 ML IV SCH ×2 (07:42→16:54)
[2018-10-04 07:53] LABS: BASO # 0.1 x10^3/uL (0.0-0.2); BASO % 1 % (0-3); EOS # 0.2 x10^3/uL (0.0-0.7); EOS % 2 % (0-3); HEMATOCRIT 35.6 % (36.0-47.0); LYMPH # 2.9 x10^3/uL (1.0-4.8); LYMPH % 27 % (24-48); MEAN CORPUSCULAR HEMOGLOBIN 31 pg (25-35); MEAN CORPUSCULAR HGB CONC 34 g/dL (31-37); MEAN CORPUSCULAR VOLUME 92 fL (79-100); MONO # 0.6 x10^3/uL (0.0-1.1); MONO % 6 % (0-9); NEUT % 65 % (31-73); PLATELET COUNT 260 x10^3/uL (140-400); RED BLOOD COUNT 3.87 x10^6/uL (3.50-5.40); RED CELL DISTRIBUTION WIDTH 13.6 % (11.5-14.5); WHITE BLOOD COUNT 10.7 x10^3/uL (4.0-11.0)
[2018-10-04 08:06] LABS: BARBITURATES NEG (NEG); BENZODIAZEPINES NEG (NEG); CANNABINOIDS NEG (NEG); COCAINE NEG (NEG); METHADONE NEG (NEG); OPIATES NEG (NEG); PHENCYCLIDINE NEG (NEG)
[2018-10-04 08:07] LABS: AMPHETAMINE/METHAMPHETAMINE NEG (NEG)
[2018-10-04] MEDS ORDERED: IV RINGERS,LACTATED 1000ML 1,000 ML IV SCH (13:24)
[2018-10-04] MEDS ORDERED: ROPIVacaine 0.2% IN 0.9%NACL PF 40 MG/20 ML DISP.SYRIN. EPID PRN (13:30)
[2018-10-04] MEDS ORDERED: NALOXONE 0.4 MG/ML VIAL. IV PRN (13:30)
[2018-10-04] MEDS ORDERED: ePHEDrine PF IN SALINE 50 MG/10 ML SYRINGE. IV PRN (13:30)
[2018-10-04] MEDS ORDERED: fentaNYL PF VIAL 100 MCG/2 ML VIAL EPI PRN (13:30)
[2018-10-04] MEDS ORDERED: BUPIVACAINE MPF 0.25% 30 ML VIAL. ONE (13:51)
[2018-10-04] MEDS: L&D EPIDURAL SYRINGE 50 ML EPID PRN ×2 (13:53→16:53)
--- NOTE | 2018-10-04 17:39 | PDOC1 ---
OB - History Hx of Present Care: Good Care Ultrasounds: Normal mid trimester US Obstetrical Complications: None Medical Complications: None Past Family/Social History * Past Medical, Surgical, Family and Obstetric Histories reviewed from chart. Blood Type: O+ Rubella: Immune RPR/VDRL: Negative GBS Status: Negative HBsAG: Negative OB - Chief Complaint & HPI Date of Admission: Date of Admission: Oct 04, 2018 at 06:43 Chief Complaint/History : 2 Para: 1 EGA: 39 Reason for admission: induction of labor Indication for induction: maternal discomfort Admission Nurse Assessment Rev: Yes OB - Admission Exam Physical Exam Vitals: VS - Last 72 Hours, by Label Date Time Temp Pulse Resp B/P (MAP) Pulse Ox O2 Delivery O2 Flow Rate FiO2 10/04/18 16:53 20 10/04/18 13:54 20 10/04/18 13:53 20 10/04/18 07:40 98.5 96 16 123/79 (94) Room Air 98.5 HEENT: Normal Heart: Regular Rate Lungs: Clear, Equal Abdomen: Gravid, Non tender, Soft Extremities: Edema Reflexes: Normal Cervical Dilatation: 2cm Effacement: 50% Station: -3 Membranes: Intact Heart Rate: Normal Accelerations: Accelerations Present Decelerations: No decelerations Contractions on Admission: None Text A: 39 wks IUP IOL secondary discomforts P: Admit IOL pitocin. SIVAKUMAR DAVID Jr, MD Oct 04, 2018 17:39
--- NOTE | 2018-10-04 17:40 | PDOC ---
VAGINAL DELIVERY DATE DATE: 10/04/18 TIME: 17:39 : 2 Para: 2 EGA: 39 VAGINAL DELIVERY: VTX VACCUM ASSISTED: No PLACENTA: Spontaneous 8/9 SEX: Female WEIGHT Weight [ 2945 gm] Nuchal Cord: No Amniotic Fluid: Clear PAIN: Epidural EPISIOTOMY: No EXTENSION: No EBL 300 ml COMPLICATIONS none CONDITION pt. stable Signs of Intrauterine Infectio: None Shoulder Dystocia: No SIVAKUMAR DAVID Jr, MD Oct 04, 2018 17:40
[2018-10-04] MEDS ORDERED: HYDROCORTISONE 1% TOPICAL OINTMENT 30GM TUBE. TP PRN (17:45)
[2018-10-04] MEDS ORDERED: MMR per PROTOCOL. MC PRN (17:45)
[2018-10-04] MEDS ORDERED: IBUPROFEN 400 MG TABLET. PO PRN (17:45)
[2018-10-04] MEDS ORDERED: SIMETHICONE 80 MG TAB.CHEW PO PRN (17:45)
[2018-10-04] MEDS ORDERED: MAGNESIUM HYDROXIDE 2,400 MG/30 ML ORAL.SUSP. PO PRN (17:45)
[2018-10-04] MEDS ORDERED: ZOLPIDEM 5 MG TABLET. PO PRN (17:45)
[2018-10-04] MEDS ORDERED: BENZOCAINE 20% TOPICAL AEROSOL SPRAY 57GM CAN. TP PRN (17:45)
[2018-10-04] MEDS ORDERED: diphenhydrAMINE HCL 25 MG CAPSULE PO PRN (17:45)
[2018-10-04] MEDS ORDERED: ACETAMINOPHEN 325 MG TABLET. PO PRN (17:45)
[2018-10-04] MEDS ORDERED: PHENYLEPH/MINERAL OIL/PETROLAT RECTAL OINTMENT 57GM TUBE. RC PRN (17:45)
[2018-10-04] MEDS ORDERED: MAG HYDROX/ALUMINUM HYD/SIMETH 30 ML ORAL.SUSP PO PRN (17:45)
[2018-10-04] MEDS: IBUPROFEN 400 MG TABLET. PO PRN (18:50)
[2018-10-04] MEDS: oxyCODONE/APAP 5/325 1 TAB TABLET PO PRN (20:37)
[2018-10-04 20:50] VITALS: BP 130/77
[2018-10-04 21:55] VITALS: BP 124/73
[2018-10-05 02:00] VITALS: BP 120/78
[2018-10-05] MEDS: oxyCODONE/APAP 5/325 1 TAB TABLET PO PRN (03:08)
[2018-10-05] MEDS: IBUPROFEN 400 MG TABLET. PO PRN ×3 (03:08→20:29)
[2018-10-05 06:51] VITALS: BP 126/87
[2018-10-05 07:34] LABS: BASO # 0.1 x10^3/uL (0.0-0.2); BASO % 1 % (0-3); EOS # 0.2 x10^3/uL (0.0-0.7); EOS % 2 % (0-3); HEMATOCRIT 36.8 % (36.0-47.0); HEMOGLOBIN 12.1 g/dL (12.0-15.5); LYMPH # 3.6 x10^3/uL (1.0-4.8); LYMPH % 29 % (24-48); MEAN CORPUSCULAR HEMOGLOBIN 31 pg (25-35); MEAN CORPUSCULAR HGB CONC 33 g/dL (31-37); MEAN CORPUSCULAR VOLUME 92 fL (79-100); MONO # 0.5 x10^3/uL (0.0-1.1); MONO % 4 % (0-9); NEUT # 8.2 x10^3/uL (1.8-7.7); NEUT % 65 % (31-73); PLATELET COUNT 251 x10^3/uL (140-400); RED BLOOD COUNT 3.98 x10^6/uL (3.50-5.40); WHITE BLOOD COUNT 12.6 x10^3/uL (4.0-11.0)
[2018-10-05] MEDS ORDERED: FERROUS SULFATE 325 MG TABLET. PO SCH (08:00)
[2018-10-05] MEDS: DOCUSATE SODIUM 100 MG CAPSULE. PO PRN ×2 (11:04→20:28)
[2018-10-05 11:20] VITALS: BP 127/89
--- NOTE | 2018-10-05 13:18 | PDOC ---
OB Progress Note Date of Service 10/05/18 Time of Evaluation 1315 Notes Pt. feeling well. No complaints. Lab Laboratory Tests Test 10/04/18 07:00 10/04/18 07:40 10/05/18 07:03 Urine Collection Type Unknown Urine Color Yellow Urine Clarity Clear Urine pH 5.5 Urine Specific [place] 1.015 Urine Protein Negative mg/dL (NEG-TRACE) Urine Glucose (UA) Negative mg/dL (NEG) Urine Ketones (Stick) Negative mg/dL (NEG) Urine Blood Negative (NEG) Urine Nitrite Negative (NEG) Urine Bilirubin Negative (NEG) Urine Urobilinogen Dipstick 0.2 mg/dL (0.2 mg/dL) Urine Leukocyte Esterase Trace (NEG) Urine RBC 0 /HPF (0-2) Urine WBC 5-10 /HPF (0-4) Urine Squamous Epithelial Cells Many /LPF Urine Bacteria Few /HPF (0-FEW) Urine Opiates Screen Neg (NEG) Urine Methadone Screen Neg (NEG) Urine Barbiturates Neg (NEG) Urine Phencyclidine Screen Neg (NEG) Urine Amphetamine/Methamphetamine Neg (NEG) Urine Benzodiazepines Screen Neg (NEG) Urine Cocaine Screen Neg (NEG) Urine Cannabinoids Screen Neg (NEG) Urine Ethyl Alcohol Neg (NEG) White Blood Count 10.7 x10^3/uL (4.0-11.0) 12.6 x10^3/uL (4.0-11.0) Red Blood Count 3.87 x10^6/uL (3.50-5.40) 3.98 x10^6/uL (3.50-5.40) Hemoglobin 12.0 g/dL (12.0-15.5) 12.1 g/dL (12.0-15.5) Hematocrit 35.6 % (36.0-47.0) 36.8 % (36.0-47.0) Mean Corpuscular Volume 92 fL (79-100) 92 fL (79-100) Mean Corpuscular Hemoglobin 31 pg (25-35) 31 pg (25-35) Mean Corpuscular Hemoglobin Concent 34 g/dL (31-37) 33 g/dL (31-37) Red Cell Distribution Width 13.6 % (11.5-14.5) 14.0 % (11.5-14.5) Platelet Count 260 x10^3/uL (140-400) 251 x10^3/uL (140-400) Neutrophils (%) (Auto) 65 % (31-73) 65 % (31-73) Lymphocytes (%) (Auto) 27 % (24-48) 29 % (24-48) Monocytes (%) (Auto) 6 % (0-9) 4 % (0-9) Eosinophils (%) (Auto) 2 % (0-3) 2 % (0-3) Basophils (%) (Auto) 1 % (0-3) 1 % (0-3) Neutrophils # (Auto) 7.0 x10^3/uL (1.8-7.7) 8.2 x10^3/uL (1.8-7.7) Lymphocytes # (Auto) 2.9 x10^3/uL (1.0-4.8) 3.6 x10^3/uL (1.0-4.8) Monocytes # (Auto) 0.6 x10^3/uL (0.0-1.1) 0.5 x10^3/uL (0.0-1.1) Eosinophils # (Auto) 0.2 x10^3/uL (0.0-0.7) 0.2 x10^3/uL (0.0-0.7) Basophils # (Auto) 0.1 x10^3/uL (0.0-0.2) 0.1 x10^3/uL (0.0-0.2) Treponema pallidum Antibody Nonreactive (Nonreactive) Laboratory Tests Test 10/05/18 07:03 White Blood Count 12.6 x10^3/uL (4.0-11.0) Red Blood Count 3.98 x10^6/uL (3.50-5.40) Hemoglobin 12.1 g/dL (12.0-15.5) Hematocrit 36.8 % (36.0-47.0) Mean Corpuscular Volume 92 fL (79-100) Mean Corpuscular Hemoglobin 31 pg (25-35) Mean Corpuscular Hemoglobin Concent 33 g/dL (31-37) Red Cell Distribution Width 14.0 % (11.5-14.5) Platelet Count 251 x10^3/uL (140-400) Neutrophils (%) (Auto) 65 % (31-73) Lymphocytes (%) (Auto) 29 % (24-48) Monocytes (%) (Auto) 4 % (0-9) Eosinophils (%) (Auto) 2 % (0-3) Basophils (%) (Auto) 1 % (0-3) Neutrophils # (Auto) 8.2 x10^3/uL (1.8-7.7) Lymphocytes # (Auto) 3.6 x10^3/uL (1.0-4.8) Monocytes # (Auto) 0.5 x10^3/uL (0.0-1.1) Eosinophils # (Auto) 0.2 x10^3/uL (0.0-0.7) Basophils # (Auto) 0.1 x10^3/uL (0.0-0.2) Medications Current Medications Sodium Chloride (Normal Saline Flush) 3 ml QSHIFT PRN IV AFTER MEDS AND BLOOD DRAWS; Start 10/04/18 at 07:00; Stop 10/05/18 at 10:08; Status DC Ringer's Solution 1,000 ml @ 125 mls/hr Q8H IV Last administered on 10/04/18at 16:54; Start 10/04/18 at 07:00; Stop 10/05/18 at 10:08; Status DC Fentanyl Citrate (Fentanyl 2ml Vial) 100 mcg PRN Q30MIN PRN IV Severe pain; Start 10/04/18 at 07:00; Stop 10/05/18 at 10:08; Status DC Ondansetron HCl (Zofran) 4 mg PRN Q4HRS PRN IV NAUSEA/VOMITING; Start 10/04/18 at 07:00 Citric Acid/ Sodium Citrate (Bicitra) 30 ml 1X PRN PRN PO DYSPEPSIA; Start 10/04/18 at 07:00; Stop 10/05/18 at 06:59; Status DC Terbutaline Sulfate (Brethine) 0.25 mg 1X PRN PRN SQ SEE COMMENTS; Start 10/04/18 at 07:00; Stop 10/05/18 at 06:59; Status DC Lidocaine HCl (Xylocaine 1% Pf 30ml Vial) 30 ml 1X PRN PRN INJ SEE COMMENTS; Start 10/04/18 at 07:00; Stop 10/05/18 at 10:08; Status DC Oxytocin/Sodium Chloride 500 ml @ 0 mls/hr CONT PRN IV SEE I/O RECORD Last administered on 10/04/18at 07:58; Start 10/04/18 at 07:00 Oxytocin/Sodium Chloride 500 ml @ 0 mls/hr CONT PRN PRN IV Post delivery bleeding; Start 10/04/18 at 07:00; Stop 10/05/18 at 10:08; Status DC Ibuprofen (Motrin) 800 mg PRN Q6HRS PRN PO PAIN Last administered on 10/05/18at 11:04; Start 10/04/18 at 07:00 Ringer's Solution 1,000 ml @ 1,000 mls/hr Q1H IV ; Start 10/04/18 at 13:24; Stop 10/04/18 at 14:23; Status DC Ephedrine Sulfate (ePHEDrine PF IN SALINE SYRINGE) 10 mg PRN Q2MIN PRN IV IF SBP<90; Start 10/04/18 at 13:30; Stop 10/05/18 at 10:08; Status DC Naloxone HCl (Narcan) 0.4 mg PRN Q1MIN PRN IV SEE COMMENTS; Start 10/04/18 at 13:30; Stop 10/05/18 at 10:08; Status DC Fentanyl Citrate (Fentanyl 2ml Vial) 100 mcg PRN 1X PRN EPI FOR ANESTHESIA Last administered on 10/04/18at 13:54; Start 10/04/18 at 13:30; Stop 10/05/18 at 10:08; Status DC Ropivacaine/ Fentanyl/NS 50 ml @ 14 mls/hr CONT PRN EPID PAIN Last administered on 10/04/18at 16:53; Start 10/04/18 at 13:24; Stop 10/05/18 at 10:08; Status DC Ondansetron HCl (Zofran) 4 mg PRN Q6HRS PRN IV NAUSEA/VOMITING; Start 10/04/18 at 13:30 Ropivacaine/ Sodium Chloride (ROPIVacaine 0.2% - 0.9%NACL PF) 40 mg PRN 1X PRN EPID SEE COMMENTS; Start 10/04/18 at 13:30; Stop 10/05/18 at 10:08; Status DC Bupivacaine HCl (Sensorcaine Mpf 0.25%) 30 ml STK-MED ONCE .ROUTE ; Start 10/04/18 at 13:51; Stop 10/05/18 at 10:08; Status DC Sodium Chloride (Normal Saline Flush) 10 ml QSHIFT PRN IV AFTER MEDS AND BLOOD DRAWS; Start 10/04/18 at 17:45; Stop 10/05/18 at 10:08; Status DC Oxytocin/Sodium Chloride 500 ml @ 62.5 mls/hr CONT PRN IV SEE I/O RECORD; Start 10/04/18 at 17:45; Stop 10/05/18 at 01:44; Status DC Acetaminophen (Tylenol) 650 mg PRN Q6HRS PRN PO MILD PAIN / TEMP; Start 10/04/18 at 17:45 Ibuprofen (Motrin) 800 mg PRN Q8HRS PRN PO INFLAMMATION/PAIN PREVENTION; Start 10/04/18 at 17:45 Docusate Sodium (Colace) 100 mg PRN BID PRN PO CONSTIPATION Last administered on 10/05/18at 11:04; Start 10/04/18 at 17:45 Magnesium Hydroxide (Milk Of Magnesia) 2,400 mg PRN DAILY PRN PO CONSTIPATION Last administered on 10/05/18at 11:03; Start 10/04/18 at 17:45 Al Hydroxide/Mg Hydroxide (Mylanta Plus Xs) 30 ml PRN Q4HRS PRN PO HEARTBURN / GAS; Start 10/04/18 at 17:45 Simethicone (Gas-X) 80 mg PRN AFTMEALHC PRN PO GAS / BLOATING; Start 10/04/18 at 17:45 Diphenhydramine HCl (Benadryl) 25 mg PRN Q6HRS PRN PO ITCHING Last administered on 10/04/18at 18:50; Start 10/04/18 at 17:45 Benzocaine (Americaine) 1 spray PRN QID PRN TP TOPICAL PAIN; Start 10/04/18 at 17:45 Phenyleph/Shark Oil/Min Oil/Petrol (Preparation H) 1 terri PRN QID PRN RC RECTAL PAIN; Start 10/04/18 at 17:45; Stop 10/05/18 at 10:08; Status DC Hydrocortisone (Cortaid) 1 terri PRN QID PRN TP PERINEAL PAIN; Start 10/04/18 at 17:45 Ferrous Sulfate (Feosol) 325 mg BIDWMEALS PO ; Start 10/05/18 at 08:00 Zolpidem Tartrate (Ambien) 5 mg PRN QHS PRN PO INSOMNIA, MAY REPEAT X1; Start 10/04/18 at 17:45 Info (Do NOT chart on this placeholder) 1 ea 1X PRN PRN MC SEE COMMENTS; Start 10/04/18 at 17:45 Info (Do NOT chart on this placeholder) 1 ea 1X PRN PRN MC SEE COMMENTS; Start 10/04/18 at 17:45 Oxycodone/ Acetaminophen (Percocet 5/325) 2 tab PRN Q4HRS PRN PO MODERATE PAIN, SEVERE PAIN Last administered on 10/05/18at 03:08; Start 10/04/18 at 17:45 Active Scripts Active Tylenol With Codeine #3 Tablet (Acetaminophen/Codeine Phosphate) 1 Each Tablet 1 Tab PO PRN Q6HRS PRN Cyclobenzaprine Hcl 10 Mg Tablet 1 Tab PO TID PRN Cephalexin 500 Mg Tablet 1 Tab PO BID Diclofenac Sodium 50 Mg Tablet.dr 1 Tab PO BID Ibuprofen 800 Mg Tablet 800 Mg PO PRN Q6HRS PRN Macrobid 100 Mg Capsule (Nitrofurantoin Monohyd/M-Cryst) 100 Mg Capsule 1 Cap PO BID Macrobid 100 Mg Capsule (Nitrofurantoin Monohyd/M-Cryst) 100 Mg Capsule 1 Cap PO BID 7 Days Naproxen 500 Mg Tablet 1 Tab PO BID [place] 5-325 Tablet (Acetaminophen/Hydrocodone Bitart) 1 Each Tablet 1 Tab PO PRN Q6HRS PRN Cephalexin 500 Mg Tablet 1 Tab PO BID Miralax (Polyethylene Glycol 3350) 17 Gm Powd.pack 1 Packet PO DAILY Promethazine Hcl 25 Mg Tablet 1 Tab PO PRN Q6HRS Cyclobenzaprine Hcl 10 Mg Tablet 1 Tab PO TID Ibuprofen 800 Mg Tablet 800 Mg PO PRN Q6HRS PRN Exam Abd: soft, non tender, fundus firm Assessment PPD#1 s/p Plan of Care: Continue current Tx, Mgmt SIVAKUMAR DAVID Jr, MD Oct 05, 2018 13:18
[2018-10-05 15:10] VITALS: BP 122/81
[2018-10-05 20:15] VITALS: BP 131/89
[2018-10-06 06:20] VITALS: BP 124/85
[2018-10-06] MEDS: IBUPROFEN 400 MG TABLET. PO PRN (06:24)
[2018-10-06] MEDS: DOCUSATE SODIUM 100 MG CAPSULE. PO PRN (06:24)
--- NOTE | 2018-10-06 07:55 | PDOC3 ---
OB DISCHARGE SUMMARY DATE OF ADMISSION: 10/04/18 DATE OF DISCHARGE: 10/06/18 REASON FOR ADMISSION: Induction of labor PROCEDURES: Ultrasound INTRAPARTUM PROCEDURES: Spontanous Vag Deliv PROCEDURES: None OPERATIONS: None DISCHARGE INFORMATION: Activity, Diet HOSPITAL COURSE Umremarkable CONDITION AT DISCHARGE Stable ROCAEL MENJIVAR MD Oct 06, 2018 07:55
[2018-10-06] MEDS ORDERED: NAPR-514 PO (07:58)
[2018-10-06] MEDS ORDERED: HYDR-3164 PO (07:58)
[2018-10-06 08:30] VITALS: BP 122/78
[2018-10-06] MEDS ORDERED: MEASLES, MUMPS & RUBELLA VACC 0.5 ML VIAL. VAX SQ ONE (09:00)
[2018-10-06] MEDS ORDERED: DIPHTH,PERTUSS(ACELL),TET TOX 0.5 ML DISP.SYRIN. VAX IM ONE (09:15)
== END 2018-10-06 10:32 | disposition home or self-care (01) | DRG 807 ==
LOC: 3 SO LND 06:43 → 3 NORTH 20:50
PROVIDERS: ADMIT Specialist; ATTEND Specialist
PROC: 10E0XZZ Delivery of Products of Conception, External Approach (ICD-10-PCS; principal; 2018-10-04)
PROC: 00HU33Z Insertion of Infusion Device into Spinal Canal, Percutaneous Approach (ICD-10-PCS; 2018-10-04)
PROC: 3E0R3BZ Introduction of Anesthetic Agent into Spinal Canal, Percutaneous Approach (ICD-10-PCS; 2018-10-04)
DX: O80 Encounter for full-term uncomplicated delivery (principal); Z37.0 Single live birth; Z3A.39 39 weeks gestation of pregnancy
CPT/HCPCS: 36415; 80307; 81001; 85025; 86592; 86850; 86900; 86901; 87086; 90471; 90707; 90715; J2590; J3010; J7120; Q0163

== ENCOUNTER 2019-01-06 11:37 | Emergency (ER) | payer OTHER ==
[~2019-01-06] VITALS: Ht 160 cm; Wt 108.9 kg
[2019-01-06 12:48] LABS: BILIRUBIN,URINE NEGATIVE (NEG); CLARITY,URINE CLEAR; COLOR,URINE YELLOW; NITRITE,URINE NEGATIVE (NEG); PROTEIN,URINE NEGATIVE (NEG-TRACE); UROBILINOGEN,URINE 0.2 mg/dL (0.2 mg/dL)
[2019-01-06 12:54] LABS: SQUAMOUS EPITHELIAL CELL,UR MANY /LPF
[2019-01-06 12:55] LABS: BACTERIA,URINE MODERATE /HPF (0-FEW); RBC,URINE 0 /HPF (0-2); WBC,URINE 20-40 /HPF (0-4)
[2019-01-06 13:26] LABS: BASO # 0.1 x10^3/uL (0.0-0.2); BASO % 1 % (0-3); EOS # 0.1 x10^3/uL (0.0-0.7); EOS % 2 % (0-3); HEMOGLOBIN 12.6 g/dL (12.0-15.5); LYMPH # 2.9 x10^3/uL (1.0-4.8); LYMPH % 48 % (24-48); MEAN CORPUSCULAR HEMOGLOBIN 31 pg (25-35); MEAN CORPUSCULAR HGB CONC 33 g/dL (31-37); MEAN CORPUSCULAR VOLUME 93 fL (79-100); MONO # 0.4 x10^3/uL (0.0-1.1); MONO % 6 % (0-9); NEUT # 2.6 x10^3/uL (1.8-7.7); NEUT % 43 % (31-73); PLATELET COUNT 279 x10^3/uL (140-400); RED BLOOD COUNT 4.11 x10^6/uL (3.50-5.40); RED CELL DISTRIBUTION WIDTH 13.6 % (11.5-14.5)
--- NOTE | 2019-01-06 13:33 | PHYS DOC ---
Past Medical History Past Medical History: No Pertinent History Past Surgical History: Other Additional Past Surgical Histo: D&C, R FALLOPIAN TUBE REMOVED Alcohol Use: Occasionally Drug Use: None Adult General Chief Complaint Chief Complaint: DIZZY/LIGHT HEADED HPI HPI Patient is a 34 year old AA female who presents to the ER with complaints of lightheadedness and high blood pressure while at work today. Pt states she was working at the [employer] when the sx began. The rn ortho there took her blood pressure twice and found it to be 190/140. Pt denies ever being dx with HTN. She reports significant family hx of HTN. PT denies any headache, numbness, tingling, weakness, vision changes, chest pain, palpitations, or shortness of breath. She currently denies any pain. Review of Systems Review of Systems Constitutional: Denies fever or chills [] Eyes: Denies change in visual acuity, redness, or eye pain [] HENT: Denies nasal congestion or sore throat [] Respiratory: Denies cough or shortness of breath [] Cardiovascular: No additional information not addressed in HPI [] GI: Denies abdominal pain, nausea, vomiting, or diarrhea [] : Denies dysuria or hematuria [] Musculoskeletal: Denies back pain or joint pain [] Integument: Denies rash or skin lesions [] Neurologic: Denies headache, focal weakness or sensory changes; see HPI[] Endocrine: Denies polyuria or polydipsia [] Complete systems were reviewed and found to be within normal limits, except as documented in this note. Allergies Allergies Allergies Coded Allergies Type Severity Reaction Last Updated Verified No Known Drug Allergies 07/19/13 No Physical Exam Physical Exam Constitutional: Well developed, well nourished, no acute distress, non-toxic appearance, obese. [] HENT: Normocephalic, atraumatic, bilateral external ears normal, oropharynx moist, no oral exudates, nose normal. [] Eyes: PERRLA, EOMI, conjunctiva normal, no discharge. [] Neck: Normal range of motion, no stridor. [] Cardiovascular:Heart rate regular rhythm, no murmur [] Lungs & Thorax: Bilateral breath sounds clear to auscultation [] Abdomen: Bowel sounds normal, soft, no tenderness, no masses, no pulsatile masses. [] Skin: Warm, dry, no erythema, no rash. [] Back: No tenderness Extremities: No cyanosis, no clubbing, ROM intact, no edema. [] Neurologic: Alert and oriented X 3, normal motor function, normal sensory function, no focal deficits noted. [] Psychologic: Affect normal, judgement normal, mood normal. [] Current Patient Data Vital Signs Vital Signs Date Time Temp Pulse Resp B/P (MAP) Pulse Ox O2 Delivery O2 Flow Rate FiO2 01/06/19 13:15 62 18 99 01/06/19 12:15 97.6 163/102 (122) Room Air 97.6 Lab Values Laboratory Tests Test 01/06/19 12:15 01/06/19 12:26 01/06/19 13:15 01/06/19 13:35 Urine Collection Type Void Urine Color Yellow Urine Clarity Clear Urine pH 6.0 Urine Specific [place] 1.015 Urine Protein Negative mg/dL (NEG-TRACE) Urine Glucose (UA) Negative mg/dL (NEG) Urine Ketones (Stick) Negative mg/dL (NEG) Urine Blood Negative (NEG) Urine Nitrite Negative (NEG) Urine Bilirubin Negative (NEG) Urine Urobilinogen Dipstick 0.2 mg/dL (0.2 mg/dL) Urine Leukocyte Esterase Moderate (NEG) Urine RBC 0 /HPF (0-2) Urine WBC 20-40 /HPF (0-4) Urine Squamous Epithelial Cells Many /LPF Urine Bacteria Moderate /HPF (0-FEW) POC Urine HCG, Qualitative Hcg negative (Negative) White Blood Count 6.0 x10^3/uL (4.0-11.0) Red Blood Count 4.11 x10^6/uL (3.50-5.40) Hemoglobin 12.6 g/dL (12.0-15.5) Hematocrit 38.0 % (36.0-47.0) Mean Corpuscular Volume 93 fL (79-100) Mean Corpuscular Hemoglobin 31 pg (25-35) Mean Corpuscular Hemoglobin Concent 33 g/dL (31-37) Red Cell Distribution Width 13.6 % (11.5-14.5) Platelet Count 279 x10^3/uL (140-400) Neutrophils (%) (Auto) 43 % (31-73) Lymphocytes (%) (Auto) 48 % (24-48) Monocytes (%) (Auto) 6 % (0-9) Eosinophils (%) (Auto) 2 % (0-3) Basophils (%) (Auto) 1 % (0-3) Neutrophils # (Auto) 2.6 x10^3/uL (1.8-7.7) Lymphocytes # (Auto) 2.9 x10^3/uL (1.0-4.8) Monocytes # (Auto) 0.4 x10^3/uL (0.0-1.1) Eosinophils # (Auto) 0.1 x10^3/uL (0.0-0.7) Basophils # (Auto) 0.1 x10^3/uL (0.0-0.2) Sodium Level 143 mmol/L (136-145) Potassium Level 3.4 mmol/L (3.5-5.1) L Chloride Level 108 mmol/L (98-107) H Carbon Dioxide Level 26 mmol/L (21-32) Anion Gap 9 (6-14) Blood Urea Nitrogen 6 mg/dL (7-20) L Creatinine 0.6 mg/dL (0.6-1.0) Estimated GFR (Cockcroft-Gault) 136.9 BUN/Creatinine Ratio 10 (6-20) Glucose Level 88 mg/dL (70-99) Calcium Level 8.8 mg/dL (8.5-10.1) Total Bilirubin 0.6 mg/dL (0.2-1.0) Aspartate Amino Transferase (AST) 14 U/L (15-37) L Alanine Aminotransferase (ALT) 18 U/L (14-59) Alkaline Phosphatase 80 U/L (46-116) Total Protein 6.7 g/dL (6.4-8.2) Albumin 3.5 g/dL (3.4-5.0) Albumin/Globulin Ratio 1.1 (1.0-1.7) Laboratory Tests 01/06/19 13:15 Laboratory Tests 01/06/19 13:35 EKG EKG 1317- SB rate 53, no STEMI read by Dr. Ribeiro[] Radiology/Procedures Radiology/Procedures Orthostatic BP unremarkable[] Course & Med Decision Making Course & Med Decision Making Pertinent Labs and Imaging studies reviewed. (See chart for details) dx: UTI, light headed sensation, hypertension CBC, CMP unremarkable, UA concerning for UTI EKG no acute changes. PT's blood pressure 140/90's in the department, pt asymptomatic Prescriptions for keflex and lisinopril. Avoid bladder irritants, increase clear fluids. Follow up with a PCP, return precautions given. Pt verbalized an understanding of home care, medications, follow-up, and return to ED instructions and was in agreement with the plan of care. [] Dragon Disclaimer Dragon Disclaimer This electronic medical record was generated, in whole or in part, using a voice recognition dictation system. Departure Departure Impression: Primary Impression: Urinary tract infection Additional Impressions: Light-headed feeling Hypertension Disposition: HOME, SELF-CARE Condition: STABLE Referrals: NO PCP (PCP) Patient Instructions: Hypertension, Jzby-me-Axow, Urinary Tract Infection, [id number] Additional Instructions: Fill prescription(s) and use as directed. Avoid bladder irritants such as caffeine, carbonation, and spicy foods. Increase clear fluids. Use the primary care provider list to establish care and follow-up with a primary care provider about your high blood pressure. Return to the ER if symptoms worsen. Scripts Lisinopril (LISINOPRIL) 10 Mg Tablet 1 TAB PO DAILY for hypertension for 30 Days, #30 TAB 0 Refills Prov: SKYLAR BROTHERS [employer] 01/06/19 Cephalexin (KEFLEX) 500 Mg Capsule 1 CAP PO BID for 7 Days, #14 CAP 0 Refills Prov: SKYLAR BROTHERS [employer] 01/06/19 Problem Qualifiers Primary Impression: Urinary tract infection Urinary tract infection type: site unspecified Hematuria presence: without hematuria Qualified Codes: N39.0 - Urinary tract infection, site not specified Additional Impressions: Hypertension Hypertension type: unspecified Qualified Codes: I10 - Essential (primary) hypertension SKYLAR BROTHERS [employer] Jan 06, 2019 13:33
[2019-01-06 13:49] LABS: CALCIUM 8.8 mg/dL (8.5-10.1); CREATININE 0.6 mg/dL (0.6-1.0); GFR 136.9; POTASSIUM 3.4 mmol/L (3.5-5.1)
[2019-01-06 13:55] LABS: ALBUMIN 3.5 g/dL (3.4-5.0); ALBUMIN/GLOBULIN RATIO 1.1 (1.0-1.7); TOTAL BILIRUBIN 0.6 mg/dL (0.2-1.0); TOTAL PROTEIN 6.7 g/dL (6.4-8.2)
[2019-01-06] MEDS ORDERED: CEPH-264 PO (14:07)
[2019-01-06] MEDS ORDERED: LISI10TA2 PO (14:07)
[2019-01-06 14:30] VITALS: BP 184/91
--- NOTE | 2019-01-06 15:22 | EKG ---
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
== END 2019-01-06 14:43 | disposition home or self-care (01) ==
LOC: ER 11:37
DX: N39.0 Urinary tract infection, site not specified (principal); I10 Essential (primary) hypertension; R42 Dizziness and giddiness
CPT/HCPCS: 36415; 80053; 81001; 81025; 85025; 87086; 93005; 99285-25

== ENCOUNTER 2019-05-30 10:50 | Emergency (ER) | payer OTHER ==
[~2019-05-30] VITALS: Ht 160 cm; Wt 110.9 kg
[~2019-05-30 10:50] MED LIST changes: +CEPH-264 PO; +LISI10TA2 PO
[2019-05-30 11:00] VITALS: BP 151/91
--- NOTE | 2019-05-30 11:25 | PHYS DOC ---
Past Medical History Past Medical History: No Pertinent History Past Surgical History: Other Additional Past Surgical Histo: D&C, R FALLOPIAN TUBE REMOVED Smoking Status: Current Every Day Smoker Additional Information: 5 cigarettes daily Alcohol Use: Occasionally Drug Use: None Adult General Chief Complaint Chief Complaint: BACK PAIN OR INJURY [facility] Patient is a 34 year old female who presents with lower back pain that started yesterday. The patient reports left flank pain as well denies any nausea, vomiting, vaginal bleeding. The patient states her last menstrual period was April 04. Denies any additional symptoms. Complete ROS were reviewed and found to be within normal limits, except as documented in the [facility] Allergies Allergies Allergies Coded Allergies Type Severity Reaction Last Updated Verified No Known Drug Allergies 07/19/13 No Physical Exam Physical Exam Constitutional: Well developed, well nourished, no acute distress, non-toxic appearance. [] HENT: Normocephalic, atraumatic, bilateral external ears normal, oropharynx moist, no oral exudates, nose normal. [] Cardiovascular:Heart rate regular rhythm, no murmur [] Lungs & Thorax: Bilateral breath sounds clear to auscultation [] Abdomen: Bowel sounds normal, soft, L flank tenderness, no masses, no pulsatile masses. [] Neurologic: Alert and oriented X 3, normal motor function, normal sensory function, no focal deficits noted. [] Psychologic: Affect normal, judgement normal, mood normal. [] Current Patient Data Vital Signs Vital Signs Date Time Temp Pulse Resp B/P (MAP) Pulse Ox O2 Delivery O2 Flow Rate FiO2 05/30/19 11:00 98.5 92 18 151/91 (111) 99 Room Air 98.5 Lab Values Laboratory Tests Test 05/30/19 11:50 05/30/19 13:31 05/30/19 14:33 Urine Collection Type Unknown Urine Color Yellow Urine Clarity Clear Urine pH 5.5 (<5.0-8.0) Urine Specific [place] 1.020 (1.000-1.030) Urine Protein Negative mg/dL (NEG-TRACE) Urine Glucose (UA) Negative mg/dL (NEG) Urine Ketones (Stick) Negative mg/dL (NEG) Urine Blood Negative (NEG) Urine Nitrite Negative (NEG) Urine Bilirubin Negative (NEG) Urine Urobilinogen Dipstick 0.2 mg/dL (0.2 mg/dL) Urine Leukocyte Esterase Small (NEG) Urine RBC 0 /HPF (0-2) Urine WBC Rare /HPF (0-4) Urine Squamous Epithelial Cells Few /LPF Urine Bacteria 0 /HPF (0-FEW) Urine Mucus Mod /LPF POC Urine HCG, Qualitative Hcg positive (Negative) White Blood Count 6.7 x10^3/uL (4.0-11.0) Red Blood Count 4.45 x10^6/uL (3.50-5.40) Hemoglobin 13.9 g/dL (12.0-15.5) Hematocrit 41.5 % (36.0-47.0) Mean Corpuscular Volume 93 fL (79-100) Mean Corpuscular Hemoglobin 31 pg (25-35) Mean Corpuscular Hemoglobin Concent 34 g/dL (31-37) Red Cell Distribution Width 13.8 % (11.5-14.5) Platelet Count 328 x10^3/uL (140-400) Neutrophils (%) (Auto) 48 % (31-73) Lymphocytes (%) (Auto) 36 % (24-48) Monocytes (%) (Auto) 11 % (0-9) H Eosinophils (%) (Auto) 5 % (0-3) H Basophils (%) (Auto) 1 % (0-3) Neutrophils # (Auto) 3.2 x10^3/uL (1.8-7.7) Lymphocytes # (Auto) 2.4 x10^3/uL (1.0-4.8) Monocytes # (Auto) 0.7 x10^3/uL (0.0-1.1) Eosinophils # (Auto) 0.3 x10^3/uL (0.0-0.7) Basophils # (Auto) 0.1 x10^3/uL (0.0-0.2) Maternal Serum HCG Beta Subunit 227 mIU/mL (0-5) H Sodium Level 144 mmol/L (136-145) Potassium Level 4.1 mmol/L (3.5-5.1) Chloride Level 107 mmol/L (98-107) Carbon Dioxide Level 28 mmol/L (21-32) Anion Gap 9 (6-14) Blood Urea Nitrogen 14 mg/dL (7-20) Creatinine 0.8 mg/dL (0.6-1.0) Estimated GFR (Cockcroft-Gault) 98.2 BUN/Creatinine Ratio 18 (6-20) Glucose Level 90 mg/dL (70-99) Calcium Level 8.9 mg/dL (8.5-10.1) Magnesium Level 1.9 mg/dL (1.8-2.4) Total Bilirubin 0.3 mg/dL (0.2-1.0) Aspartate Amino Transferase (AST) 13 U/L (15-37) L Alanine Aminotransferase (ALT) 18 U/L (14-59) Alkaline Phosphatase 77 U/L (46-116) Total Protein 6.9 g/dL (6.4-8.2) Albumin 3.4 g/dL (3.4-5.0) Albumin/Globulin Ratio 1.0 (1.0-1.7) Laboratory Tests 05/30/19 14:33 Laboratory Tests 05/30/19 14:33 EKG EKG [] Radiology/Procedures Radiology/Procedures [][facility] [address] [place] [address] IMAGING REPORT Signed PATIENT: JENNIFER VERASACCOUNT: [id number] : 1985 LOCATION: ER AGE: 34 SEX: F EXAM STATUS: REG ER ORD. PHYSICIAN: SHARON DICK APRN REASON: abdominal pain in preg PROCEDURE: OB <14 WKS W/TV EXAM: First Trimester OB Ultrasound INDICATION: Left lower quadrant abdominal pain. Positive hCG by urine. Blood test pending. Unknown LMP. TECHNIQUE: Real-time first trimester obstetrical ultrasound was performed with permanent freeze-frame documentation. COMPARISON: None. FINDINGS: GESTATIONAL SAC: Not visualized POLE: Not visualized CROWN RUMP LENGTH: Not applicable PLACENTA: Not visualized MATERNAL UTERUS: Uterus measures 8.0 x 4.8 x 4.9 cm with a 1.5 cm endometrial stripe showing no intrauterine gestational sac. MATERNAL ADNEXA: No adnexal mass. Right ovary measures 3.0 x 3.0 x 1.5 cm and demonstrates normal blood flow. The left ovary measures 2.6 x 2.2 x 2.8 cm and contains a 0.8 x 1.1 x 1.3 cm vascular ovarian follicle, compatible with a corpus luteum. AGE/DATES: Gestational Age by LMP: Uncertain Gestational Age by US: Not assessed EDC by LMP: Uncertain EDC by US: Not assessed IMPRESSION: No evidence of an intra or extrauterine . Findings of indicated palpable of unknown location. Recommend correlation with serial beta hCG measurements and consideration of a follow-up pelvic ultrasound as clinically warranted. Electronically signed by: Ioana Estrella MD (05/30/2019 2:47 PM) [id number] DICTATED and SIGNED BY: IOANA ESTRELLA MD DATE: 05/30/19 1447 Course & Med Decision Making Course & Med Decision Making Pertinent Labs and Imaging studies reviewed. (See chart for details) We will get a urine and test on the patient. Urine test was positive. Will get labs and ultrasound. IMPRESSION: No evidence of an intra or extrauterine . Findings of indicated palpable of unknown location. Recommend correlation with serial beta hCG measurements and consideration of a follow-up pelvic ultrasound as clinically warranted. Electronically signed by: Ioana Estrella MD (05/30/2019 2:47 PM) [id number] Dragon Disclaimer Dragon Disclaimer This electronic medical record was generated, in whole or in part, using a voice recognition dictation system. Departure Departure Impression: Primary Impression: Disposition: 01 HOME, SELF-CARE Condition: STABLE Referrals: NO PCP (PCP) Patient Instructions: ABCs of Additional Instructions: Thank you for visiting [facility]. We appreciate you trusting us with your care. If any additional problems come up don't hesitate to return to visit us. Please follow up with your primary care provider so they can plan additional care if needed and know about the problem that you had. If symptoms worsen come back to the Emergency Department. Any concerning symptoms that start such as chest pain, shortness of air, weakness or numbness on one side of the body, running high fevers or any other concerning symptoms return to the ER. SHARON DICK APRN May 30, 2019 11:25
[2019-05-30 12:02] LABS: BILIRUBIN,URINE NEGATIVE (NEG); CLARITY,URINE CLEAR; COLOR,URINE YELLOW; NITRITE,URINE NEGATIVE (NEG); PH,URINE 5.5 (<5.0-8.0); PROTEIN,URINE NEGATIVE (NEG-TRACE); UROBILINOGEN,URINE 0.2 mg/dL (0.2 mg/dL)
[2019-05-30 12:12] LABS: BACTERIA,URINE 0 /HPF (0-FEW); RBC,URINE 0 /HPF (0-2); SQUAMOUS EPITHELIAL CELL,UR FEW /LPF; WBC,URINE RARE /HPF (0-4)
[2019-05-30 14:42] LABS: BASO # 0.1 x10^3/uL (0.0-0.2); BASO % 1 % (0-3); EOS # 0.3 x10^3/uL (0.0-0.7); EOS % 5 % (0-3); HEMATOCRIT 41.5 % (36.0-47.0); HEMOGLOBIN 13.9 g/dL (12.0-15.5); LYMPH # 2.4 x10^3/uL (1.0-4.8); LYMPH % 36 % (24-48); MEAN CORPUSCULAR HEMOGLOBIN 31 pg (25-35); MEAN CORPUSCULAR HGB CONC 34 g/dL (31-37); MEAN CORPUSCULAR VOLUME 93 fL (79-100); MONO # 0.7 x10^3/uL (0.0-1.1); MONO % 11 % (0-9); NEUT # 3.2 x10^3/uL (1.8-7.7); NEUT % 48 % (31-73); PLATELET COUNT 328 x10^3/uL (140-400); RED BLOOD COUNT 4.45 x10^6/uL (3.50-5.40); RED CELL DISTRIBUTION WIDTH 13.8 % (11.5-14.5); WHITE BLOOD COUNT 6.7 x10^3/uL (4.0-11.0)
--- NOTE | 2019-05-30 14:50 | RAD ---
EXAM: First Trimester OB Ultrasound INDICATION: Left lower quadrant abdominal pain. Positive hCG by urine. Blood test pending. Unknown LMP. TECHNIQUE: Real-time first trimester obstetrical ultrasound was performed with permanent freeze-frame documentation. COMPARISON: None. FINDINGS: GESTATIONAL SAC: Not visualized POLE: Not visualized CROWN RUMP LENGTH: Not applicable PLACENTA: Not visualized MATERNAL UTERUS: Uterus measures 8.0 x 4.8 x 4.9 cm with a 1.5 cm endometrial stripe showing no intrauterine gestational sac. MATERNAL ADNEXA: No adnexal mass. Right ovary measures 3.0 x 3.0 x 1.5 cm and demonstrates normal blood flow. The left ovary measures 2.6 x 2.2 x 2.8 cm and contains a 0.8 x 1.1 x 1.3 cm vascular ovarian follicle, compatible with a corpus luteum. AGE/DATES: Gestational Age by LMP: Uncertain Gestational Age by US: Not assessed EDC by LMP: Uncertain EDC by US: Not assessed IMPRESSION: No evidence of an intra or extrauterine . Findings of indicated palpable of unknown location. Recommend correlation with serial beta hCG measurements and consideration of a follow-up pelvic ultrasound as clinically warranted. Electronically signed by: Nya Estrella MD (05/30/2019 2:47 PM) [id number]
[2019-05-30 14:51] LABS: CALCIUM 8.9 mg/dL (8.5-10.1); CREATININE 0.8 mg/dL (0.6-1.0); GFR 98.2; POTASSIUM 4.1 mmol/L (3.5-5.1)
[2019-05-30 14:57] LABS: ALBUMIN 3.4 g/dL (3.4-5.0); MAGNESIUM 1.9 mg/dL (1.8-2.4); TOTAL BILIRUBIN 0.3 mg/dL (0.2-1.0); TOTAL PROTEIN 6.9 g/dL (6.4-8.2)
== END 2019-05-30 16:00 | disposition home or self-care (01) ==
LOC: ER 10:50
DX: O26.891 Other specified pregnancy related conditions, first trimester (principal); M54.5 Low back pain; R10.9 Unspecified abdominal pain; O99.331 Smoking (tobacco) complicating pregnancy, first trimester; Z3A.00 Weeks of gestation of pregnancy not specified
CPT/HCPCS: 36415; 76801; 76817; 80053; 81001; 81025; 83735; 84702; 85025; 87086; 99284-25

== ENCOUNTER 2019-08-01 21:29 | Emergency (ER) | payer OTHER ==
[~2019-08-01] VITALS: Ht 160 cm; Wt 115.9 kg
[2019-08-01 22:04] LABS: BILIRUBIN,URINE NEGATIVE (NEG); CLARITY,URINE CLEAR; COLOR,URINE YELLOW; NITRITE,URINE NEGATIVE (NEG); PH,URINE 7.5 (<5.0-8.0); PROTEIN,URINE NEGATIVE (NEG-TRACE); UROBILINOGEN,URINE 0.2 mg/dL (0.2 mg/dL)
[2019-08-01 22:12] LABS: BACTERIA,URINE MODERATE /HPF (0-FEW); RBC,URINE >40 /HPF (0-2); SQUAMOUS EPITHELIAL CELL,UR MANY /LPF
--- NOTE | 2019-08-01 22:55 | RAD ---
OB < 14 WKS History: Vaginal bleeding. Comparison: None. Technique: Grayscale and color Doppler imaging of the pelvis was performed using transabdominal technique. Findings: The uterus measures 13.4 x 10.8 x 9.1 cm in length. Cervical length 4.3 cm. Single intrauterine with biparietal diameter 2.3 cm. Head circumference 8.7 cm. Estimated gestational age by ultrasound 13 weeks 5 days. heart rate 157 bpm. Amniotic fluid index within normal limits. Placenta posterior wall positioning. Right ovary measures 2.9 x 2.6 x 2.8 cm. Left ovary measures 3.0 x 2.7 x 1.9 cm. Normal blood flow. No adnexal masses are seen. IMPRESSION: 1. Single intrauterine gestational age 13 weeks 5 days with heart rate 157 bpm. Electronically signed by: Xu Field DO (08/01/2019 10:52 PM) [facility]
[2019-08-01 23:24] LABS: BASO # 0.1 x10^3/uL (0.0-0.2); BASO % 1 % (0-3); EOS # 0.4 x10^3/uL (0.0-0.7); EOS % 4 % (0-3); HEMATOCRIT 31.9 % (36.0-47.0); HEMOGLOBIN 10.9 g/dL (12.0-15.5); LYMPH # 3.4 x10^3/uL (1.0-4.8); LYMPH % 32 % (24-48); MEAN CORPUSCULAR HEMOGLOBIN 31 pg (25-35); MEAN CORPUSCULAR HGB CONC 34 g/dL (31-37); MEAN CORPUSCULAR VOLUME 90 fL (79-100); MONO # 0.6 x10^3/uL (0.0-1.1); MONO % 5 % (0-9); NEUT # 6.2 x10^3/uL (1.8-7.7); NEUT % 58 % (31-73); PLATELET COUNT 271 x10^3/uL (140-400); RED BLOOD COUNT 3.56 x10^6/uL (3.50-5.40); RED CELL DISTRIBUTION WIDTH 12.9 % (11.5-14.5); WHITE BLOOD COUNT 10.7 x10^3/uL (4.0-11.0)
--- NOTE | 2019-08-01 23:24 | PHYS DOC ---
Past Medical History Past Medical History: Ectopic Additional Past Medical Histor: Ectopic x 2 Past Surgical History: Other Additional Past Surgical Histo: D&C, R FALLOPIAN TUBE REMOVED Smoking Status: Current Every Day Smoker Alcohol Use: Occasionally Drug Use: None General Adult EDM: Chief Complaint: VAGINAL BLEEDING HPI: HPI: Patient is a 34 year old female presents with history of vaginal bleeding upon wiping which started approximately 40 min prior to arrival. Reports she is approximately 13 weeks. Reports prior ectopic requiring salpingectomy. Denies vaginal discharge prior. Denies fever/chills. 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 Allergies: Allergies: Allergies Coded Allergies Type Severity Reaction Last Updated Verified No Known Drug Allergies 08/01/19 No Physical Exam: PE: Constitutional: Well developed, well nourished, no acute distress, non-toxic appearance HENT: Normocephalic, atraumatic, oropharynx moist, nose normal Eyes: Conjunctiva normal, no discharge Neck: Normal range of motion, no tenderness, supple, no meningeal signs Cardiovascular: Heart rate normal and regular rhythm Lungs & Thorax: Bilateral breath sounds clear to auscultation, no respiratory distress Abdomen: Soft, no tenderness Pelvic exam: Porter Luggage RN, external genitalia normal, scant bloody discharge noted in vaginal vault, no CMT, os closed, no adnexal tenderness Skin: Warm, dry, no erythema, no rash Back: No tenderness, no CVA tenderness Extremities: No tenderness, ROM intact, no edema Neurologic: Alert and oriented X 3, no focal deficits noted Psychologic: Affect normal, judgement normal Current Patient Data: Labs: Laboratory Tests Test 08/01/19 20:35 08/01/19 21:39 Urine Collection Type Void Urine Color Yellow Urine Clarity Clear Urine pH 7.5 (<5.0-8.0) Urine Specific [place] 1.010 (1.000-1.030) Urine Protein Negative mg/dL (NEG-TRACE) Urine Glucose (UA) Negative mg/dL (NEG) Urine Ketones (Stick) Negative mg/dL (NEG) Urine Blood Large (NEG) Urine Nitrite Negative (NEG) Urine Bilirubin Negative (NEG) Urine Urobilinogen Dipstick 0.2 mg/dL (0.2 mg/dL) Urine Leukocyte Esterase Trace (NEG) Urine RBC >40 /HPF (0-2) Urine WBC 1-4 /HPF (0-4) Urine Squamous Epithelial Cells Many /LPF Urine Bacteria Moderate /HPF (0-FEW) POC Urine HCG, Qualitative Hcg positive (Negative) Microbiology 08/01/19 Wet Prep - Final, Complete Vital Signs: Vital Signs Date Time Temp Pulse Resp B/P (MAP) Pulse Ox O2 Delivery O2 Flow Rate FiO2 08/01/19 21:48 98.7 103 18 123/69 (87) 98 Room Air 98.7 EKG: EKG: [] Radiology/Procedures: Radiology/Procedures: PROCEDURE: OB < 14 WKS OB < 14 WKS History: Vaginal bleeding. Comparison: None. Technique: Grayscale and color Doppler imaging of the pelvis was performed using transabdominal technique. Findings: The uterus measures 13.4 x 10.8 x 9.1 cm in length. Cervical length 4.3 cm. Single intrauterine with biparietal diameter 2.3 cm. Head circumference 8.7 cm. Estimated gestational age by ultrasound 13 weeks 5 days. heart rate 157 bpm. Amniotic fluid index within normal limits. Placenta posterior wall positioning. Right ovary measures 2.9 x 2.6 x 2.8 cm. Left ovary measures 3.0 x 2.7 x 1.9 cm. Normal blood flow. No adnexal masses are seen. IMPRESSION: 1. Single intrauterine gestational age 13 weeks 5 days with heart rate 157 bpm. Electronically signed by: Xu Field DO (08/01/2019 10:52 PM) [facility] Course & Med Decision Making: Course & Med Decision Making Pertinent Labs and Imaging studies reviewed. (See chart for details) female presents with report of vaginal bleeding at approximately 13 weeks. Pelvic exam performed. Chlamydia/Gonorrhea cultures pending. Patient declined empiric antibiotic treatment. Wet mount positive for BV. US with IUP with good heart tones. Labs obtained and posted to chart. [facility] [place] appropriate. [facility] records note patient RH positive. Patient stable for discharge home with outpatient follow-up with PCP/OB. Discussed findings and plan with patient, who acknowledges understanding and agreement. Kris Disclaimer: Kris Disclaimer: This electronic medical record was generated, in whole or in part, using a voice recognition dictation system. Departure Departure Impression: Primary Impression: Threatened miscarriage Additional Impressions: Bacterial vaginitis Hypomagnesemia Disposition: HOME, SELF-CARE Condition: STABLE Referrals: NO PCP (PCP) SIVAKUMAR DAVID Jr, MD Patient Instructions: Hypomagnesemia, Threatened Miscarriage, [id number], Vaginitis, [id number] Scripts Metronidazole (FLAGYL) 500 Mg Tablet 500 MG PO BID for Vaginosis, #14 TAB Prov: SHARON LOVELACE DO 08/02/19 SHARON LOVELACE DO August 01, 2019 23:24
[2019-08-01 23:30] VITALS: BP 112/56
[2019-08-01] MEDS ORDERED: metroNIDAZOLE 500 MG TABLET PO ONE (23:30)
[2019-08-01 23:34] LABS: CALCIUM 8.4 mg/dL (8.5-10.1); CREATININE 0.5 mg/dL (0.6-1.0); GFR 168.9; MAGNESIUM 1.5 mg/dL (1.8-2.4); POTASSIUM 3.5 mmol/L (3.5-5.1)
[2019-08-02] MEDS ORDERED: MAGNESIUM CHLORIDE ER 64 MG TABLET.ER PO ONE
[2019-08-02] MEDS ORDERED: METR500T PO (00:08)
[2019-08-03 18:09] LABS: GC PROBE Negative (Negative)
== END 2019-08-02 00:34 | disposition home or self-care (01) ==
LOC: ER 21:29
DX: O20.0 Threatened abortion (principal); N76.0 Acute vaginitis; B96.89 Other specified bacterial agents as the cause of diseases classified elsewhere; E83.42 Hypomagnesemia; Z3A.13 13 weeks gestation of pregnancy
CPT/HCPCS: 76801; 80048; 81001; 81025; 83735; 84702; 85025; 87086; 87491; 87591; 99285; Q0111; 36415

== ENCOUNTER → 2019-08-31 | Outpatient (CLI) | payer OTHER ==
[2019-08-01 23:30] VITALS: BP 112/56
[~2019-08-31] MED LIST changes: +METR500T PO
--- NOTE | 2019-08-31 15:27 | RAD ---
EXAM: Obstetrics sonogram. HISTORY: Uterine size and dates discrepancy. TECHNIQUE: Sonographic imaging of a gravid uterus was performed. COMPARISON: None. FINDINGS: There is a single uterine fetus in cephalic presentation with a normal heart rate of 162 bpm. There is body motion. There is a three-vessel umbilical cord with normal insertion. The stomach, kidneys, bladder, spine and brain are unremarkable. The cervix is closed and measures 4.5 cm in length. There is a grade 1 posterior placenta. There is no evidence of placenta previa. The biparietal diameter 3.9 cm, corresponding with 18 weeks and 1 day. The head circumference is 15.26 cm, corresponding with 18 weeks and 2 days. The abdominal sequential images 12.28 cm, corresponding with 18 weeks and 0 days. The femoral length is 2.80 cm, corresponding with 18 weeks and 4 days. The estimated gestational age patient combined also measurements is 18 weeks and 2 days and the estimated weight is 230 g. The estimated due date is 01/30/2020. IMPRESSION: Single intrauterine fetus with normal heart rate and gestational age based on ultrasound measurements of 18 weeks and 2 days. The estimated gestational age based on LMP is 19 weeks and 3 days. Electronically signed by: Karla Fitzpatrick MD (08/31/2019 3:24 PM) [facility]
== END | disposition home or self-care (01) ==
LOC: US 13:35
PROVIDERS: ATTEND Obstetrics & Gynecology
DX: O26.842 Uterine size-date discrepancy, second trimester (principal); Z3A.18 18 weeks gestation of pregnancy
CPT/HCPCS: 76805

== ENCOUNTER → 2019-12-20 | Outpatient (CLI) | payer OTHER ==
--- NOTE | 2019-12-20 14:26 | RAD ---
EXAM: Ultrasound OB Greater than 14 weeks INDICATION: Reason: SIZE AND DATES / Spl. Instructions: / History: TECHNIQUE: Real-time obstetrical ultrasound was performed with permanent freeze-frame documentation. COMPARISON: None. FINDINGS: POSITION: Cephalic HEART RATE: 149 bpm BENNETT: 10.4 cm PLACENTA: Fundal maternal right CERVICAL LENGTH: 5.1 cm MATERNAL UTERUS: Unremarkable. MATERNAL ADNEXA: Unremarkable. AGE/DATES: Gestational Age by LMP: 34 weeks 1 day Gestation Age by US: 33 weeks 1 day EDC by LMP: January 30, 2020 EDC by US: February 06, 2020 WEIGHT: 2115 grams +/- 313 grams PERCENTILE WEIGHT: 30% BIOMETRIC PARAMETERS: BPD: 8.0 cm corresponding with 32 weeks 1 day HC: 30.6 cm corresponding with 34 weeks 1 day AC: 29.0 cm corresponding with 33 weeks 0 days FL: 6.4 cm corresponding with 33 weeks 0 days IMPRESSION: Normal OB ultrasound demonstrating a single viable fetus in cephalic position. Estimated gestational age of 33 weeks 1 day and EDC of February 06, 2020. Electronically signed by: Nya Estrella MD (12/20/2019 2:23 PM) [id number]
== END ==
LOC: US 10:41
PROVIDERS: ATTEND Obstetrics & Gynecology
DX: O26.843 Uterine size-date discrepancy, third trimester (principal); Z3A.33 33 weeks gestation of pregnancy
CPT/HCPCS: 76805

== ENCOUNTER 2020-01-11 09:11 | Observation (INO) | payer OTHER ==
[2020-01-11] MEDS ORDERED: IV RINGERS,LACTATED 1000ML 1,000 ML IV SCH (09:13)
== END 2020-01-11 10:10 | disposition home or self-care (01) ==
LOC: 3 SO LND 09:11
PROVIDERS: ADMIT Obstetrics & Gynecology; ATTEND Obstetrics & Gynecology
DX: O16.3 Unspecified maternal hypertension, third trimester (principal); Z3A.36 36 weeks gestation of pregnancy
CPT/HCPCS: G0378; G0379

== ENCOUNTER 2020-01-18 09:23 | Observation (INO) | payer OTHER | END 2020-01-18 17:00 | disposition home or self-care (01) | LOC: 3 SO LND 09:23 | PROVIDERS: ADMIT Obstetrics & Gynecology; ATTEND Obstetrics & Gynecology | DX: O16.3 Unspecified maternal hypertension, third trimester (principal); Z20.828 Contact with and (suspected) exposure to other viral communicable diseases; Z3A.37 37 weeks gestation of pregnancy | CPT/HCPCS: G0378; G0379; U0003; 59025 ==

== ENCOUNTER 2020-08-24 10:17 | Emergency (ER) | payer OTHER ==
[~2020-08-24] VITALS: Ht 160 cm; Wt 121.1 kg
[~2020-08-24 10:17] MED LIST changes: +IBUP-1027 PO; +LISI10TA16 PO; -LISI10TA2 PO
[2020-08-24 11:15] VITALS: BP 150/96
--- NOTE | 2020-08-24 12:42 | PHYS DOC ---
Past Medical History Past Medical History: Ectopic Additional Past Medical Histor: Ectopic x 2 Past Surgical History: Other Additional Past Surgical Histo: D&C, R FALLOPIAN TUBE REMOVED Smoking Status: Current Every Day Smoker Alcohol Use: Occasionally Drug Use: None General Adult EDM: Chief Complaint: COUGH HPI: HPI: Patient is a 35 year old female who presents with runny nose, sore throat and cough for the last week. She is not taking any medications for prescriptions. She denies fever, miley pain, nausea, vomiting, diarrhea, chest pain, shortness of breath, headache, dizziness, chills, body aches. She is fully vaccinated for Covid. She is a smoker. Her only other history is Fallopian tube removal and a topic . She denies any pain at this time. Review of Systems: Review of Systems: Constitutional: Denies fever or chills. [] Eyes: Denies change in visual acuity. [] HENT: Denies nasal congestion or +sore throat. + Runny nose [] Respiratory: + cough or denies shortness of breath. [] Cardiovascular: Denies chest pain or edema. [] GI: Denies abdominal pain, nausea, vomiting, bloody stools or diarrhea. [] : Denies dysuria. [] Musculoskeletal: Denies back pain or joint pain. [] Integument: Denies rash. [] Neurologic: Denies headache, focal weakness or sensory changes. [] Endocrine: Denies polyuria or polydipsia. [] Lymphatic: Denies swollen glands. [] Psychiatric: Denies depression or anxiety. [] Heart Score: C/O Chest Pain: No Risk Factors: Risk Factors: DM, Current or recent (<one month) smoker, HTN, HLP, family history of CAD, obesity. Risk Scores: Score 0 - 3: 2.5% MACE over next 6 weeks - Discharge Home Score 4 - 6: 20.3% MACE over next 6 weeks - Admit for Clinical Observation Score 7 - 10: 72.7% MACE over next 6 weeks - Early Invasive Strategies Allergies: Allergies: Allergies Coded Allergies Type Severity Reaction Last Updated Verified No Known Drug Allergies 08/01/19 No Physical Exam: PE: Constitutional: Well developed, well nourished, no acute distress, non-toxic appearance. [] HENT: Normocephalic, atraumatic, bilateral external ears normal, oropharynx moist, no oral exudates, nose normal. Postnasal drip [] Eyes: PERRLA, EOMI, conjunctiva normal, no discharge. [] Neck: Normal range of motion, no tenderness, supple, no stridor. [] Cardiovascular:Heart rate regular rhythm, no murmur [] Lungs & Thorax: Bilateral breath sounds clear to auscultation [] Abdomen: Bowel sounds normal, soft, no tenderness, no masses, no pulsatile masses. [] Skin: Warm, dry, no erythema, no rash. [] Back: No tenderness, no CVA tenderness. [] Extremities: No tenderness, no cyanosis, no clubbing, ROM intact, no edema. [] Neurologic: Alert and oriented X 3, normal motor function, normal sensory function, no focal deficits noted. [] Psychologic: Affect normal, judgement normal, mood normal. [] EKG: EKG: [] Radiology/Procedures: Radiology/Procedures: [] Course & Med Decision Making: Course & Med Decision Making Pertinent Labs and Imaging studies reviewed. (See chart for details) COVID-19 CRITERIA: The patient was evaluated during the global COVID-19 pandemic, and that diagnosis was suspected/considered upon their initial presentation. Their evaluation, treatment and testing was consistent with current guidelines for patients who present with complaints or symptoms that may be related to COVID-19. See HPI. Alert and oriented x4. Ambulatory with steady gait. Skin pink warm and dry. Lungs are clear all station all lobes. Throat is pink with exudates or swelling. There is postnasal drip. Bilateral tympanic's are white. Mucous membranes moist. Afebrile. Vital signs within normal limits. Patient is Covid tested. [] Dragon Disclaimer: Dragon Disclaimer: This electronic medical record was generated, in whole or in part, using a voice recognition dictation system. COVID-19 Patient Risks: Age 65 or older: No Sign of co-morbidity: Yes Exp to person + for COVID: No Exp to PUI: No Lower respiratory symptoms: Yes Fever: No Other: Yes (sore throat) PPE Use: Full PPE with N95 mask or PAPR: Yes Departure Departure Impression: Primary Impression: Nasal congestion Additional Impressions: Sore throat Cough Disposition: 01 HOME / SELF CARE / HOMELESS Condition: STABLE Referrals: NO PCP (PCP) Patient Instructions: Allergic Rhinitis, Cough, Adult, Sore Throat Additional Instructions: Take [id number] allergy medicines. Take Tylenol for your pain. Use nasal sprays. Follow-up with your primary care physician. Drink plenty of fluids. You have been tested for or diagnosed with COVID-19. It is an infection caused by a new type of coronavirus. COVID-19 will cause cold-like or mild flu symptoms in most. It can cause more severe symptoms like problems breathing in some. There is no treatment for COVID-19. The body will clear the infection over time. Self-care will help to ease discomfort. Steps to Take: Self-Care Rest as needed. Healthy habits may help you feel better. Steps include: Choose healthy foods including fruits and vegetables. Drink water throughout the day. Get plenty of sleep each night. If you smoke, try to quit. It may ease breathing. Avoid alcohol. Keep Others Healthy The virus can spread to others. Droplets are released every time you sneeze or cough. The droplets can get into the mouth, nose, or eyes of people near you and lead to infection. To lower the chances of spreading COVID-19 to others: Stay at home until your doctor has said it is safe to leave. If you tested positive this will mean staying isolated until both of the following are true: At least 7 days have passed since the start of illness. You are free of fever for at least 72 hours without the use of medicine. During this time: - Avoid public areas, events, or transportation. Do not return to work or school until your doctor has said it is safe to do so. - Call ahead if you need to go to a medical center. Let them know you may have COVID-19. It will help them guide you where to go. They may also ask you to wear a facemask when you come to the office. - If you call for emergency medical services, let them know you may have COVID- 19. While at home: - Try to avoid close contact with others. Stay about 6 feet away. - If possible, spend most of your time in a separate room from others. - Use a face mask if you will be in close contact with others such as sharing a room or vehicle. - Have someone wipe down common surfaces in the home. Use household new accounts clerk every day on areas like doorknobs, counters, or sinks. - Cough or sneeze into a tissue. Throw the tissue away right after use. If a tissue is not available, cough or sneeze into your elbow. - Wash your hands often. Wash them after sneezing or coughing. Use soap and water and wash for at least 20 seconds. Alcohol based hand rug cleaner can be used if soap and water is not available. - Do not prepare food for others. Avoid sharing personal items like forks, spoons, or toothbrushes. - Avoid close contact with pets while you are sick. There is no evidence of the virus passing to pets. This is a safety step until more is known about this virus. Isolation can be frustrating. Social interaction can help. Keep in touch with friends and family through phone and tech options. You can still interact with others in your home, just keep a safe distance of about 6 feet. Follow-up: Your doctors office will check in with you to see if there are any changes in your health. You may be asked to keep track of symptoms to share with them. They will also let you know when you are clear to be in public again. Problems to Look Out For: Contact your doctor if your recovery is not going as you expect. Get emergency care if you have problems such as: - Trouble breathing - Nonstop chest pain or pressure - Changes in awareness, confusion, or problems waking - Lips or face have bluish color - Worsening of symptoms If you think you have an emergency, call for emergency medical services right away. As taken from [facility] GENEVIEVE URIAS APRN Aug 24, 2020 12:41
--- NOTE | 2020-08-27 08:56 | NUR ---
IP: Informed pt of negative covid test. Pt verbalized understanding.
== END 2020-08-24 12:56 | disposition home or self-care (01) ==
LOC: ER 10:17
DX: R09.81 Nasal congestion (principal); Z20.822 Contact with and (suspected) exposure to COVID-19; J02.9 Acute pharyngitis, unspecified; R05 Cough; F17.200 Nicotine dependence, unspecified, uncomplicated
CPT/HCPCS: 99283; U0003; U0005